=== PATIENT | male | born 1955 | race Two or more races ===

== ENCOUNTER 2022-03-13 11:28 | Emergency (ER) | payer MEDICARE ==
[2022-03-13 11:40] VITALS: TEMP 98
[2022-03-13 11:41] LABS: Glucose,Whole Blood 532 mg/dL (70-110)
--- NOTE | 2022-03-13 12:21 | ED ---
General Adult HPI - General Chief complaint: Altered Mental Status Stated complaint: dizziness, memory issues Time Seen by Provider: 03/13/22 12:11 Source: patient, RN notes reviewed Mode of arrival: ambulatory Limitations: no limitations, altered mental status - History of Present Illness Initial comments: 66-year-old male history diabetes who is a smoker history of COPD who states she's had several days up to 3-4 days of dizziness weakness lightheadedness headache some memory issues. No focal deficits to his upper or lower extremities however headache is [id number] in severity he denies any visual disturbances. No trauma. No other current complaints of modifying factors - Related Data Home Medications Medication Instructions Recorded Confirmed No Known Home Medications 03/13/22 03/13/22 Allergies Allergy/AdvReac Type Severity Reaction Status Date / Time No Known Allergies Allergy Verified 03/13/22 14:11 Review of Systems ROS Statement: Those systems with pertinent positive or pertinent negative responses have been documented in the HPI. ROS Other: All systems not noted in ROS Statement are negative. Past Medical History Past Medical History: Diabetes Mellitus, Hypertension History of Any Multi-Drug Resistant Organisms: None Reported Past Surgical History: No Surgical Hx Reported Past Psychological History: No Psychological Hx Reported Smoking Status: Former smoker Past Alcohol Use History: None Reported Past Drug Use History: None Reported General Exam - General Exam Comments Initial Comments: This is a well-developed well-nourished awake alert oriented 4 male Limitations: no limitations, altered mental status General appearance: alert, in no apparent distress Head exam: Present: atraumatic, normocephalic, normal inspection Eye exam: Present: normal appearance, PERRL, EOMI. Absent: scleral icterus, conjunctival injection, periorbital swelling ENT exam: Present: mucous membranes dry Neck exam: Present: normal inspection, full ROM, other. Absent: tenderness, meningismus, lymphadenopathy Respiratory exam: Present: normal lung sounds bilaterally. Absent: respiratory distress, wheezes, rales, rhonchi, stridor Cardiovascular Exam: Present: normal rhythm, tachycardia, normal heart sounds. Absent: systolic murmur, diastolic murmur, rubs, gallop, clicks GI/Abdominal exam: Present: soft, normal bowel sounds. Absent: distended, tenderness, guarding, rebound, rigid Extremities exam: Present: normal inspection, full ROM, normal capillary refill. Absent: tenderness, pedal edema, joint swelling, calf tenderness Back exam: Present: normal inspection Neurological exam: Present: alert, oriented X3, CN II-XII intact Psychiatric exam: Present: normal affect, normal mood Skin exam: Present: warm, dry, intact, normal color. Absent: rash Course Vital Signs 03/13/22 03/13/22 03/13/22 11:35 11:59 12:30 Temperature 98 F Pulse Rate 110 H 108 H Respiratory 20 28 H 11 L Rate Blood Pressure 174/83 158/90 O2 Sat by Pulse 99 97 Oximetry 03/13/22 13:00 Temperature Pulse Rate 98 Respiratory 16 Rate Blood Pressure 156/84 O2 Sat by Pulse 98 Oximetry - Reevaluation(s) Reevaluation #1: 03/13/22 15:48 Further questions patient he does admit to having some chest pain several days ago. None since additionally no headaches Reevaluation #2: 03/13/22 15:49 I had discussed the case with internal medicine, Dr. Shabazz. The patient did leave AWOL prior to the admission be accomplished. He did not talk to staff before he got up and left the. EKG Findings - EKG Results: EKG: interpreted by ERMD (EKG interpreted by me sinus tachycardia of 104. Interval 184 QRS duration 125 daily since QTC 367/427 possible right ventricular conduction delay evidence of old inferior changes also poor R-wave progression suggesting previous anterolateral septal OH no acute changes seen) Medical Decision Making - Medical Decision Making I did discuss the findings with the patient and with Dr. Shabazz, the patient will be admitted for inpatient evaluation and treatment by cardiology and neuro logy. He did have elevated troponin as well as elevated blood sugar he was acetone negative however. Was pt. sent in by a medical professional or institution? @ No-[by , PA, RAIL TRACK MAINTAINER, urgent care, hospital, or half-way] Did you speak to anyone other than the patient for history? @ No-[EMS, parent, family, police, friend?] Did you review nursing and triage notes? @ Yes and agree-[agree or disagree, why?] Were old charts reviewed? @ Previous inpatient charting -[outside hosp., previous admissions, EMS record, old EKG, old radiological studies, urgent care reports/EKGs, half-way records?] Differential Diagnosis? @ Stroke, acute stroke ruled out at this time, dehydration patient was given IV fluids, hyperglycemia/DKA the patient was given IV fluids and IV insulin. Elevated troponin no definitive EKG changes cardiology was to be consulted- [chest pain, altered mental status abdominal pain women, abdominal pain men, vaginal bleeding, weakness, fever, dyspnea, syncope, headache, dizziness, GI bleed, back pain, seizure] EKG interpreted by me (3pts min.)? @ Yes -[none] X-rays interpreted by me (1pt min.)? @ Yes no acute process -[none] CT interpreted by me (1pt min.)? @ Yes encephalomalacia-[none] U/S interpreted by me (1pt. min.)? @ -[none] What testing was considered but not performed? (CT, X-rays, U/S, labs)? Why? @ [CT, X-rays, U/S, labs? Why?] What meds were considered but not given? Why? @ -[none] Did you discuss the management of the patient with other professionals? @ Dr. Shabazz upon admission-[professionals i.e. Dr, PA, RAIL TRACK MAINTAINER, Lab, RT, Psych Nurse, Scratch Brusher, Yarder Puncher, Teacher, Web Content Coordinator, immigration case worker? Give summary] Did you reconcile home meds? @ -[none] Was smoking cessation discussed for >3mins.? @ -[none] Was critical care preformed (if so, how long)? @ Yes 39 minutes-[none] Were there social determinants of health that impacted care today? How? (Homelessness, low income, unemployed, alcoholism, drug addiction, transportation, low edu. Level, literacy, decrease access to med. care, fpc, rehab)? @ -[Homelessness, low income, unemployed, alcoholism, drug addiction, transportation, low edu. Level, literacy, decrease access to med. care, fpc, rehab?] Was there de-escalation of care discussed even if they declined? (Discuss DNR or withdrawal of care, Hospice)? @ -[Discuss DNR or withdrawal of care, Hospice?] What co-morbidities impacted this encounter? (DM, HTN, Smoking, COPD, CAD, Cancer, CVA, Hep., AIDS, mental health diagnosis, sleep apnea, morbid obesity)? @ Patient was to be admitted controlled diabetes, hyperglycemia, dehydration, elevated troponin-[DM, HTN, Smoking, COPD, CAD, Cancer, CVA, Hep., AIDS, mental health diagnosis, sleep apnea, morbid obesity?] Was patient admitted / discharged? @ The patient left AWOL/AMA without discussion with staff -[hospital course] Undiagnosed new problem with uncertain prognosis? @ -[none] Drug Therapy requiring intensive monitoring for toxicity (Heparin, Nitro, Insulin, Cardizem)? @ -[none] Were any procedures done? @ -[none] Diagnosis/symptom? @ Uncontrolled diabetes, hyperglycemia, dehydration, elevated troponin-[default] Acute, or Chronic, or Acute on Chronic? @ -[default] Uncomplicated (without systemic symptoms) or Complicated (systemic symptoms)? @ -[default] Side effects of treatment? @ Exacerbation -[none] Exacerbation, Progression, or Severe Exacerbation] @ -[no] Poses a threat to life or bodily function? @ -[no] - Lab Data Result diagrams: 03/13/22 12:43 03/13/22 12:43 Lab Results 03/13/22 03/13/22 03/13/22 Range/Units 11:39 12:43 12:43 WBC 11.0 H (3.8-10.6) k/uL RBC 4.98 (4.30-5.90) m/uL Hgb 16.3 (13.0-17.5) gm/dL Hct 47.7 (39.0-53.0) % MCV 95.8 (80.0-100.0) fL MCH 32.7 (25.0-35.0) pg MCHC 34.1 (31.0-37.0) g/dL RDW 12.5 (11.5-15.5) % Plt Count 250 (150-450) k/uL MPV 9.0 Neutrophils % 71 % Lymphocytes % 18 % Monocytes % 6 % Eosinophils % 1 % Basophils % 1 % Neutrophils # 7.9 H (1.3-7.7) k/uL Lymphocytes # 2.0 (1.0-4.8) k/uL Monocytes # 0.7 (0-1.0) k/uL Eosinophils # 0.1 (0-0.7) k/uL Basophils # 0.1 (0-0.2) k/uL Sodium (137-145) mmol/L Potassium (3.5-5.1) mmol/L Chloride (98-107) mmol/L Carbon Dioxide (22-30) mmol/L Anion Gap mmol/L BUN (9-20) mg/dL Creatinine (0.66-1.25) mg/dL Est GFR (CKD-EPI)AfAm (>60 ml/min/1.73 sqM) Est GFR (CKD-EPI)NonAf (>60 ml/min/1.73 sqM) Glucose (74-99) mg/dL POC Glucose (mg/dL) 532 H (70-110) mg/dL POC Glu Tanker Driver ID Fernando Briseno Calcium (8.4-10.2) mg/dL Magnesium (1.6-2.3) mg/dL Total Bilirubin (0.2-1.3) mg/dL AST (17-59) U/L ALT (4-49) U/L Alkaline Phosphatase (38-126) U/L Creatine Kinase (55-170) U/L Troponin I (0.000-0.034) ng/mL Total Protein (6.3-8.2) g/dL Albumin (3.5-5.0) g/dL Urine Color Light Yellow Urine Appearance Clear (Clear) Urine pH 5.0 (5.0-8.0) Ur Specific Roy 1.043 H (1.001-1.035) Urine Protein Negative (Negative) Urine Glucose (UA) 4+ H (Negative) Urine Ketones 1+ H (Negative) Urine Blood Negative (Negative) Urine Nitrite Negative (Negative) Urine Bilirubin Negative (Negative) Urine Urobilinogen <2.0 (<2.0) mg/dL Ur Leukocyte Esterase Negative (Negative) Acetone, Qual (Negative) 03/13/22 03/13/22 Range/Units 12:43 12:43 WBC (3.8-10.6) k/uL RBC (4.30-5.90) m/uL Hgb (13.0-17.5) gm/dL Hct (39.0-53.0) % MCV (80.0-100.0) fL MCH (25.0-35.0) pg MCHC (31.0-37.0) g/dL RDW (11.5-15.5) % Plt Count (150-450) k/uL MPV Neutrophils % % Lymphocytes % % Monocytes % % Eosinophils % % Basophils % % Neutrophils # (1.3-7.7) k/uL Lymphocytes # (1.0-4.8) k/uL Monocytes # (0-1.0) k/uL Eosinophils # (0-0.7) k/uL Basophils # (0-0.2) k/uL Sodium 135 L (137-145) mmol/L Potassium 4.3 (3.5-5.1) mmol/L Chloride 104 (98-107) mmol/L Carbon Dioxide 18 L (22-30) mmol/L Anion Gap 13 mmol/L BUN 15 (9-20) mg/dL Creatinine 0.71 (0.66-1.25) mg/dL Est GFR (CKD-EPI)AfAm >90 (>60 ml/min/1.73 sqM) Est GFR (CKD-EPI)NonAf >90 (>60 ml/min/1.73 sqM) Glucose 511 H* (74-99) mg/dL POC Glucose (mg/dL) (70-110) mg/dL POC Glu Tanker Driver ID Calcium 9.1 (8.4-10.2) mg/dL Magnesium 1.9 (1.6-2.3) mg/dL Total Bilirubin 0.7 (0.2-1.3) mg/dL AST 21 (17-59) U/L ALT 17 (4-49) U/L Alkaline Phosphatase 94 (38-126) U/L Creatine Kinase 41 L (55-170) U/L Troponin I 0.058 H* (0.000-0.034) ng/mL Total Protein 6.9 (6.3-8.2) g/dL Albumin 4.0 (3.5-5.0) g/dL Urine Color Urine Appearance (Clear) Urine pH (5.0-8.0) Ur Specific Roy (1.001-1.035) Urine Protein (Negative) Urine Glucose (UA) (Negative) Urine Ketones (Negative) Urine Blood (Negative) Urine Nitrite (Negative) Urine Bilirubin (Negative) Urine Urobilinogen (<2.0) mg/dL Ur Leukocyte Esterase (Negative) Acetone, Qual Negative (Negative) - Radiology Data Interpreted by me: Imaging interpreted by me showed definitive an increased markings or acute pathology. CT shows evidence of encephalomalacia no definitive acute processes Critical Care Time Critical Care Time: Yes Total Critical Care Time: 39 Critical Care Time: Critical care time includes initial presentation with history physical labs x- rays multiple reevaluation patient responsive therapy fluids IV therapy review of old charting was available discussed with the main physician documentation of the above Disposition Clinical Impression: Uncontrolled diabetes mellitus, Hyperglycemia, Dehydration Disposition: Left Against Medical Advice Condition: Fair Referrals: None,Stated [Primary Care Provider] - 1-2 days Decision Date: 03/13/22 Decision Time: 14:30
--- NOTE | 2022-03-13 12:50 | XR ---
EXAMINATION TYPE: XR chest 2V DATE OF EXAM: 03/13/2022 COMPARISON: NONE HISTORY: Weakness and dizziness, elevated glucose TECHNIQUE: Frontal and lateral views of the chest are obtained. FINDINGS: The cardiomediastinal silhouette is unremarkable. There are calcifications of the aortic k nob. There is no pulmonary vascular congestion. There is a 15 mm opacity in the right mid lung, only appreciated on the frontal projection. Otherwise, lungs are clear. Multilevel degenerative changes of the spine without acute osseous abnormality. IMPRESSION: 1. No acute cardiopulmonary process. 2. 15 mm opacity projecting over the right mid lung. Recommend nonemergent low-dose CT for further e valuation.
--- NOTE | 2022-03-13 12:56 | CT ---
EXAMINATION TYPE: CT brain wo con DATE OF EXAM: 03/13/2022 COMPARISON: None HISTORY: 66-year-old male confusion, altered mental status TECHNIQUE: Examination was done in axial plane without intravenous contrast. Coronal and sagittal r econstructions performed. CT DLP: 1100.4 mGycm Automated exposure control for dose reduction was used. FINDINGS: There is no evidence of acute intracranial hemorrhage, acute ischemic changes, mass, mass-effect, or extra-axial fluid collection. There is no effacement of cerebral sulci or basal subarachnoid cister ns. There is no hydrocephalus. There is no midline shift. Ramirez-white matter distinction is preserv ed. Moderate volume loss along the bilateral cerebral convexities. There is some focal cortical and subco rtical encephalomalacia at the left superior frontoparietal junction, old lacunar infarct left basal ganglia, right caudate head, and additional encephalomalacia in anterolateral left temporal lobe. Mil d periventricular white matter hypodensity. Atherosclerotic calcifications in the bilateral carotid s iphons. Rightward nasal septal deviation. Trace mucosal thickening ethmoid air cells. Mastoid air cells well pneumatized. IMPRESSION: Moderate atrophy along the cerebral convexities. Areas of encephalomalacia superior left frontopariet al junction and left temporal lobe likely relating to prior infarcts. Clinically correlate. Additiona l old lacunar infarcts left basal ganglia and right caudate head. No acute intracranial abnormality s een.
[2022-03-13] MEDS ORDERED: SODIUM CHLORIDE 0.9% 1,000 ML IV STA (13:01)
[2022-03-13 13:02] LABS: Basophils # (A) 0.1 k/uL (0-0.2); Basophils % (A) 1 %; Eosinophils # (A) 0.1 k/uL (0-0.7); Eosinophils % (A) 1 %; HCT 47.7 % (39.0-53.0); HGB 16.3 gm/dL (13.0-17.5); Lymphocytes % (A) 18 %; MCH 32.7 pg (25.0-35.0); MCHC 34.1 g/dL (31.0-37.0); MCV 95.8 fL (80.0-100.0); Monocytes # (A) 0.7 k/uL (0-1.0); Monocytes % (A) 6 %; Neutrophils # (A) 7.9 k/uL (1.3-7.7); Neutrophils % (A) 71 %; Platelet Count 250 k/uL (150-450); RBC 4.98 m/uL (4.30-5.90); RDW 12.5 % (11.5-15.5)
[2022-03-13 13:11] LABS: ALT 17 U/L (4-49); AST 21 U/L (17-59); African American GFR (CKD) >90 (>60 ml/min/1.73 sqM); Alkaline Phosphatase 94 U/L (38-126); Anion Gap 13 mmol/L; Blood Urea Nitrogen 15 mg/dL (9-20); Calcium 9.1 mg/dL (8.4-10.2); Carbon Dioxide 18 mmol/L (22-30); Chloride 104 mmol/L (98-107); Creatine Kinase 41 U/L (55-170); Magnesium 1.9 mg/dL (1.6-2.3); Non-African American GFR(CKD) >90 (>60 ml/min/1.73 sqM); Potassium 4.3 mmol/L (3.5-5.1); Sodium 135 mmol/L (137-145); Total Bilirubin 0.7 mg/dL (0.2-1.3); Total Protein 6.9 g/dL (6.3-8.2)
[2022-03-13 13:21] LABS: Appearance,Urine Clear (Clear); Bilirubin,Urine Negative (Negative); Blood,Urine Negative (Negative); Color,Urine Light Yellow; Glucose,Urine (UA) 4+ (Negative); Ketones,Urine 1+ (Negative); Leukocyte Esterase,Urine Negative (Negative); Nitrite,Urine Negative (Negative); Protein,Urine Negative (Negative); Specific Gravity,Urine 1.043 (1.001-1.035); Urobilinogen,Urine <2.0 mg/dL (<2.0)
[2022-03-13 13:29] LABS: Glucose 511 mg/dL (74-99)
[2022-03-13] MEDS ORDERED: INSULIN REGULAR 100 UNIT/ML VIAL (IV) IV ONE (13:34)
[2022-03-13 14:55] VITALS: BP 156/84; PULSE 98; RESP 16
== END 2022-03-13 15:03 | disposition left against medical advice (07) ==
LOC: EC 11:28
DX: E11.65 Type 2 diabetes mellitus with hyperglycemia (principal); E86.0 Dehydration; G93.89 Other specified disorders of brain; J44.9 Chronic obstructive pulmonary disease, unspecified; I10 Essential (primary) hypertension; Z87.891 Personal history of nicotine dependence
CPT/HCPCS: 36415; 70450; 71046; 80053; 81003; 82009; 82550; 83735; 84484; 85025; 93005; 96360; 99285

== ENCOUNTER 2024-06-10 22:58 | Inpatient (IN) | payer MEDICARE ==
[2024-06-11 00:07] LABS: Basophils # (A) 0.1 k/uL (0-0.2); Basophils % (A) 1 %; Eosinophils # (A) 0.1 k/uL (0-0.7); Eosinophils % (A) 1 %; HCT 47.6 % (39.0-53.0); HGB 15.1 gm/dL (13.0-17.5); Hypochromasia Slight; Lymphocytes # (A) 2.4 k/uL (1.0-4.8); Lymphocytes % (A) 24 %; MCH 29.5 pg (25.0-35.0); MCHC 31.6 g/dL (31.0-37.0); MCV 93.4 fL (80.0-100.0); Mean Platelet Volume 8.4; Monocytes # (A) 0.7 k/uL (0-1.0); Monocytes % (A) 7 %; Neutrophils # (A) 6.7 k/uL (1.3-7.7); Neutrophils % (A) 65 %; Platelet Count 269 k/uL (150-450); RDW 13.6 % (11.5-15.5); WBC 10.2 k/uL (3.8-10.6)
--- NOTE | 2024-06-11 00:09 | ED ---
General Adult HPI - General Chief complaint: Extremity Injury, Lower Stated complaint: leg pain Time Seen by Provider: 06/10/24 23:35 Source: patient, RN notes reviewed, old records reviewed Mode of arrival: ambulatory - History of Present Illness Initial comments: Patient is a 68-year-old male who presents to the emergency department complaining of acute on chronic bilateral lower extremity burning pain. Has a history of poorly controlled diabetes as he is homeless and does not have free access to his insulin. Used to be given shots of insulin as "someone would come give it to me" however this has not been occurring for over a week. Denies any nausea or vomiting or diarrhea. Denies any other acute complaints. States the pain is worse when he is on his legs all day. Describes as burning sensation all over his legs and occasionally his feet go numb. No acute complaints at this time. No leg swelling. No fevers or chills. Presents for further evalua tion at this time. Does not have a PCP to follow-up with. - Related Data Home Medications Medication Instructions Recorded Confirmed No Known Home Medications 03/13/22 03/13/22 Allergies Allergy/AdvReac Type Severity Reaction Status Date / Time No Known Allergies Allergy Verified 03/13/22 14:11 Review of Systems ROS Statement: Those systems with pertinent positive or pertinent negative responses have been documented in the HPI. Review of Systems: CONST: Denies fever EYES: Denies blurry vision ENT: Denies nasal congestion C/V: Denies Chest pain RESP: Denies shortness of breath GI: Denies abdominal pain : Denies dysuria SKIN: Denies rash. MSK: Endorses acute on chronic leg pain NEURO: Denies headache ROS Other: All systems not noted in ROS Statement are negative. Past Medical History Past Medical History: Diabetes Mellitus, Hypertension History of Any Multi-Drug Resistant Organisms: None Reported Past Surgical History: No Surgical Hx Reported Past Psychological History: No Psychological Hx Reported Smoking Status: Former smoker Past Alcohol Use History: None Reported Past Drug Use History: None Reported General Exam - General Exam Comments Initial Comments: General: Appears in no acute distress. HEAD: Normal with no signs of head trauma. EYES: EOMI ENT: Hearing grossly intact, normal oropharynx. RESPIRATORY: Clear breath sounds bilaterally. No wheezes, rales, or rhonchi. C/V: Regular rate and rhythm. S1 and S2 auscultated, no edema, peripheral pulses 2+ and intact throughout ABD: Abd is soft, nontender, nondistended EXT: Normal range of motion, no obvious deformity SKIN: No rashes or lesions observed on exposed skin. NEURO: Alert and oriented x 4. Subjective numbness to the bottoms of his feet. Otherwise neurovascularly intact. Course Vital Signs 06/10/24 06/11/24 23:00 01:56 Temperature 98.1 F Pulse Rate 90 68 Respiratory 18 15 Rate Blood Pressure 186/74 166/83 O2 Sat by Pulse 98 97 Oximetry Medical Decision Making - Medical Decision Making Was pt. sent in by a medical professional or institution (, MARGARET, TWX OPERATOR, urgent care, hospital, or long term...) When possible be specific @ -No Did you speak to anyone other than the patient for history (EMS, parent, family, police, friend...)? What history was obtained from this source @ -No Did you review nursing and triage notes (agree or disagree)? Why? @ -I reviewed and agree with nursing and triage notes Were old charts reviewed (outside hosp., previous admission, EMS record, old EKG, old radiological studies, urgent care reports/EKG's, long term records)? Report findings @ -No old charts were reviewed Differential Diagnosis (chest pain, altered mental status, abdominal pain women, abdominal pain men, vaginal bleeding, weakness, fever, dyspnea, syncope, headache, dizziness, GI bleed, back pain, seizure, CVA, palpatations, mental health, musculoskeletal)? @ -Diabetic neuropathy, DVT, electrolyte abnormality. This list is not all inclusive. EKG interpreted by me (3pts min.). @ -As above X-rays interpreted by me (1pt min.). @ -None done CT interpreted by me (1pt min.). @ -None done U/S interpreted by me (1pt. min.). @ -Ultrasound revealed no evidence of DVT or any obvious acute process of the lower extremities bilaterally. What testing was considered but not performed or refused? (CT, X-rays, U/S, labs)? Why? @ -None What meds were considered but not given or refused? Why? @ -None Did you discuss the management of the patient with other professionals (professionals i.e. , MARGARET, TWX OPERATOR, lab, RT, psych nurse, social science professor, anthropometrist, teacher, systems support officer, caser shoe parts)? Give summary @ -No Was smoking cessation discussed for >3mins.? @ -No Was critical care preformed (if so, how long)? @ -No Were there social determinants of health that impacted care today? How? (Homelessness, low income, unemployed, alcoholism, drug addiction, transportation, low edu. Level, literacy, decrease access to med. care, intermediate, rehab)? @ -Yes, patient is homeless and does not have access to his insulin for his diabetes. Was there de-escalation of care discussed even if they declined (Discuss DNR or withdrawal of care, Hospice)? DNR status @ -No What co-morbidities impacted this encounter? (DM, HTN, Smoking, COPD, CAD, Cancer, CVA, ARF, Chemo, Hep., AIDS, mental health diagnosis, sleep apnea, morbid obesity)? @ -Insulin-dependent diabetes Was patient admitted / discharged? Hospital course, mention meds given and route, prescriptions, significant lab abnormalities, going to OR and other pertinent info. @ -Based on the patient's presentation and physical exam, presents with acute on chronic bilateral lower extremity pain. Seems to be neuropathic pain. We will obtain basic labs, as well as bilateral venous duplex ultrasounds of the legs. Patient is homeless and currently has no access to his insulin. Was receiving it from someone who would come find him and administer it however this has not been occurring. He has no good follow-up and does not follow-up with the PCP. Presents for further evaluation at this time. We may admit the patient for social work evaluation. Patient was in agreement this plan. Ultrasound returned unremarkable. Laboratory studies remarkable for hyperglycemia of 546. Did respond to insulin. I discussed results with the patient. He is homeless and has no access to his medications. Patient will be made an observation admission for product demonstrator, social work to evaluate the patient in the morning and to work out his medication issue. He was in agreement this plan. I spoke with the admitting provider, Dr. Yoder of [facility] who accepted the admission. Undiagnosed new problem with uncertain prognosis? @ -No Drug Therapy requiring intensive monitoring for toxicity (Heparin, Nitro, Insulin, Cardizem)? @ -No Were any procedures done? @ -No Diagnosis/symptom? @ -Hyperglycemia, homeless, medication noncompliance Acute, or Chronic, or Acute on Chronic? @ -Acute Uncomplicated (without systemic symptoms) or Complicated (systemic symptoms)? @ -Complicated Side effects of treatment? @ -None Exacerbation, Progression, or Severe Exacerbation] @ -No Poses a threat to life or bodily function? @ -Potentially, yes if his blood glucose is not controlled. - Lab Data Result diagrams: 06/10/24 23:47 06/10/24 23:47 Lab Results 06/10/24 06/10/24 06/11/24 Range/Units 23:47 23:47 01:44 WBC 10.2 (3.8-10.6) k/uL RBC 5.10 (4.30-5.90) m/uL Hgb 15.1 (13.0-17.5) gm/dL Hct 47.6 (39.0-53.0) % MCV 93.4 (80.0-100.0) fL MCH 29.5 (25.0-35.0) pg MCHC 31.6 (31.0-37.0) g/dL RDW 13.6 (11.5-15.5) % Plt Count 269 (150-450) k/uL MPV 8.4 Neutrophils % 65 % Lymphocytes % 24 % Monocytes % 7 % Eosinophils % 1 % Basophils % 1 % Neutrophils # 6.7 (1.3-7.7) k/uL Lymphocytes # 2.4 (1.0-4.8) k/uL Monocytes # 0.7 (0-1.0) k/uL Eosinophils # 0.1 (0-0.7) k/uL Basophils # 0.1 (0-0.2) k/uL Hypochromasia Slight Sodium 134 L (137-145) mmol/L Potassium 4.4 (3.5-5.1) mmol/L Chloride 99 (98-107) mmol/L Carbon Dioxide 22 (22-30) mmol/L Anion Gap 13 mmol/L BUN 23 H (9-20) mg/dL Creatinine 0.74 (0.66-1.25) mg/dL Est GFR (CKD-EPI)AfAm >90 (>60 ml/min/1.73 sqM) Est GFR (CKD-EPI)NonAf >90 (>60 ml/min/1.73 sqM) Glucose 546 H* (74-99) mg/dL POC Glucose (mg/dL) 361 H (70-110) mg/dL POC Glu Tongue And Groove Machine Operator ID LESTER MCCURDY Calcium 9.9 (8.4-10.2) mg/dL Magnesium 2.1 (1.6-2.3) mg/dL Total Bilirubin 0.6 (0.2-1.3) mg/dL AST 23 (17-59) U/L ALT 23 (4-49) U/L Alkaline Phosphatase 95 (38-126) U/L Total Protein 7.5 (6.3-8.2) g/dL Albumin 4.4 (3.5-5.0) g/dL - EKG Data -: EKG Interpreted by Me EKG Comments: 12-lead Electrocardiogram Interpretation Note EKG was reviewed and interpreted by myself. 12-lead ECG performed at 2347 is interpreted by me as revealing normal sinus rhythm at a rate of 69 beats per minute. Left axis deviation. NM interval is 217 ms, QRS duration is 124 ms, QTc is 434 ms.. There were no ST or T wave abnormalities to suggest myocardial ischemia or injury. R wave progression across the precordium was satisfactory. By my interpretation this EKG is non-diagnostic for acute ischemia. Disposition Clinical Impression: Hyperglycemia, Noncompliance with medication regimen, Homeless Disposition: ADMITTED IP TO THIS HOSP Condition: Stable Time of Disposition: 02:43
[2024-06-11] MEDS: SODIUM CHLORIDE 0.9% 1,000 ML IV ONE (00:10)
[2024-06-11] MEDS: CYCLOBENZAPRINE 5 MG TAB PO STA (00:12)
[2024-06-11] MEDS: GABAPENTIN 100 MG CAP PO STA (00:12)
[2024-06-11] MEDS: KETOROLAC 15 MG/ML 1 ML VIAL IVP STA (00:13)
[2024-06-11 00:32] LABS: ALT 23 U/L (4-49); AST 23 U/L (17-59); African American GFR (CKD) >90 (>60 ml/min/1.73 sqM); Albumin 4.4 g/dL (3.5-5.0); Alkaline Phosphatase 95 U/L (38-126); Anion Gap 13 mmol/L; Blood Urea Nitrogen 23 mg/dL (9-20); Calcium 9.9 mg/dL (8.4-10.2); Carbon Dioxide 22 mmol/L (22-30); Chloride 99 mmol/L (98-107); Magnesium 2.1 mg/dL (1.6-2.3); Non-African American GFR(CKD) >90 (>60 ml/min/1.73 sqM); Potassium 4.4 mmol/L (3.5-5.1); Sodium 134 mmol/L (137-145); Total Bilirubin 0.6 mg/dL (0.2-1.3); Total Protein 7.5 g/dL (6.3-8.2)
[2024-06-11 00:42] LABS: Glucose 546 mg/dL (74-99)
[2024-06-11] MEDS ORDERED: DEXTROSE 50% SYRINGE 50 ML IVP PRN ×2 (00:50)
[2024-06-11] MEDS: INSULIN LISPRO (HumaLOG) 100 UNIT/ML 10 mL VL SQ ONE (01:10)
[2024-06-11 01:45] LABS: Glucose,Whole Blood 361 mg/dL (70-110)
--- NOTE | 2024-06-11 02:27 | US ---
EXAM: US Duplex Bilateral Lower Extremities Veins CLINICAL HISTORY: ITS.REASON US Reason: eval for dvt TECHNIQUE: Real-time duplex ultrasound scan of the bilateral lower extremity veins integrating B-mode two-dimensional vascular structure, Doppler spectral analysis, color flow Doppler imaging and compression. COMPARISON: No relevant prior studies available. FINDINGS: Right deep veins: Unremarkable. No DVT in the right common femoral, femoral, proximal deep femoral or popliteal veins. The veins demonstrate normal color flow, are normally compressible, with normal phasic flow and/or augmentation response. Right superficial veins: Unremarkable. No thrombus in the visualized right great saphenous vein. Left deep veins: Unremarkable. No DVT in the left common femoral, femoral, proximal deep femoral or popliteal veins. The veins demonstrate normal color flow, are normally compressible, with normal phasic flow and/or augmentation response. Left superficial veins: Unremarkable. No thrombus in the visualized left great saphenous vein. Soft tissues: No acute findings. No popliteal cyst. IMPRESSION: Normal bilateral lower extremity duplex venous ultrasound.
[2024-06-11] MEDS ORDERED: NALOXONE 0.4 MG/ML 1 ML VIAL IV PRN (02:43)
[2024-06-11] MEDS ORDERED: ONDANSETRON 4 MG/2 ML VIAL IVP PRN (02:43)
[2024-06-11 03:26] LABS: Glucose,Whole Blood 175 mg/dL (70-110)
[2024-06-11 07:37] LABS: Glucose,Whole Blood 231 mg/dL (70-110)
[2024-06-11] MEDS: ACETAMINOPHEN TAB 325 MG TAB PO PRN (07:58)
[2024-06-11] MEDS: INSULIN LISPRO (HumaLOG) 100 UNIT/ML 10 mL VL SQ SCH (07:58)
[2024-06-11] MEDS: metFORMIN 500 MG TAB PO SCH (10:58)
[2024-06-11] MEDS ORDERED: IBUPROFEN 400 MG TAB PO PRN (12:00)
[2024-06-11 12:14] LABS: Glucose,Whole Blood 287 mg/dL (70-110)
[2024-06-11] MEDS: IBUPROFEN 400 MG TAB PO STA (12:38)
--- NOTE | 2024-06-11 14:22 | P.HPIM ---
History of Present Illness This is a pleasant 68 years old male with past medical history of diabetes mellitus, patient states that he takes 1 injection for diabetes a day and he does not take other medication. He lives in a farm that belongs to his parents by himself after his left him about 8 to 10 years ago, his kids are living somewhere else. He says because of his leg weakness he decided to come to the emergency room. Patient states that his leg weakness was getting slightly worse and worse over several months and years, and told to the degree that he could not move around so he called 911 and came to emergency room. However his legs look stronger now and he told me he could manage himself to walk slowly to the restroom. Also on exam his legs does not look weak and he looks symmetrical he denies tingling or numbness in both upper and lower extremities, no headache or dizziness, no blurred vision or slurred speech. No chest pain or dyspnea no abdominal pain but he complains from right upper quadrant deep discomfort for 2 months. No diarrhea or vomiting. No urinary complaints On exam for his lower extremity weakness he experienced some tenderness especially in the right calf He denies smoking alcohol or illicit drugs Vitals are stable held febrile Labs showing unremarkable CBC, BMP, LFTs, troponin. Glucose was elevated at 546 on admission, improved to 200 Ultrasound of the leg is negative for DVT EKG showing sinus rhythm at 69 with PVCs and anterior fascicular block and LVH. He does not follow-up with PCP for more than 6 months, he cannot remember where he got his prescription for his diabetes medication Review of Systems Review of systems CONSTITUTIONAL: No fever, no malaise, no fatigue. HEENT: No recent visual problems or hearing problems. Denied any sore throat. CARDIOVASCULAR: No orthopnea, PND, no palpitations, no syncope. PULMONARY: No shortness of breath, no cough, no hemoptysis. GASTROINTESTINAL: No diarrhea, no nausea, no vomiting, no abdominal pain. Normoactive bowel sounds. NEUROLOGICAL: No headaches, no weakness, no numbness. HEMATOLOGICAL: Denies any bleeding or petechiae. GENITOURINARY: Denies any burning micturition, frequency, or urgency. MUSCULOSKELETAL/RHEUMATOLOGICAL: Denies any joint pain, swelling, or any muscle pain. ENDOCRINE: Denies any polyuria or polydipsia. Past Medical History Past Medical History: Diabetes Mellitus, Hypertension History of Any Multi-Drug Resistant Organisms: None Reported Past Surgical History: No Surgical Hx Reported Past Anesthesia/Blood Transfusion Reactions: No Reported Reaction Past Psychological History: No Psychological Hx Reported Smoking Status: Former smoker Past Alcohol Use History: None Reported Past Drug Use History: None Reported Medications and Allergies Home Medications Medication Instructions Recorded Confirmed Type No Known Home Medications 03/13/22 06/11/24 History Allergies Allergy/AdvReac Type Severity Reaction Status Date / Time No Known Allergies Allergy Verified 06/11/24 12:10 Physical Exam Vitals: Vital Signs Temp Pulse Pulse Resp BP BP Pulse Ox 06/11/24 11:52 98.4 F 63 16 132/65 95 06/11/24 07:42 97.3 F L 69 16 148/69 94 L 06/11/24 03:33 97.7 F 72 16 155/90 98 06/11/24 01:56 68 15 166/83 97 06/10/24 23:00 98.1 F 90 18 186/74 98 Intake and Output 06/10/24 06/11/24 06/11/24 22:59 06:59 14:59 Intake Total 590 240 Balance 590 240 Intake: Oral 590 240 Other: Voiding Method Toilet # Voids 2 Weight 83 kg GENERAL: The patient is alert and oriented x3, not in any acute distress. Well developed, well nourished. HEENT: Pupils are round and equally reacting to light. EOMI. No scleral icterus. No conjunctival pallor. Normocephalic, atraumatic. No pharyngeal erythema. No thyromegaly. CARDIOVASCULAR: S1 and S2 present. No murmurs, rubs, or gallops. PULMONARY: Chest is clear to auscultation, no wheezing , no crackles. ABDOMEN: Soft, nontender, nondistended, normoactive bowel sounds. No palpable organomegaly. MUSCULOSKELETAL: No joint swelling or deformity. -EXTREMITIES: No cyanosis, clubbing, or pedal edema. Mild tenderness on the right calf with movement NEUROLOGICAL: Gross neurological examination did not reveal any focal deficits. SKIN: No rashes. no petechiae. Results CBC & Chem 7: 06/10/24 23:47 06/10/24 23:47 Labs: Abnormal Lab Results - Last 24 Hours (Table) 06/10/24 06/11/24 06/11/24 Range/Units 23:47 01:44 03:24 Sodium 134 L (137-145) mmol/L BUN 23 H (9-20) mg/dL Glucose 546 H* (74-99) mg/dL POC Glucose (mg/dL) 361 H 175 H (70-110) mg/dL 06/11/24 06/11/24 Range/Units 07:36 12:13 Sodium (137-145) mmol/L BUN (9-20) mg/dL Glucose (74-99) mg/dL POC Glucose (mg/dL) 231 H 287 H (70-110) mg/dL Thrombosis Risk Factor Assmnt - Choose All That Apply Any of the Below Risk Factors Present?: Yes Each Factor Represents 1 point: Obesity (BMI >25) Other Risk Factors: Yes Each Risk Factor Represents 2 Points: Age 61-74 years Other congenital or acquired thrombophilia - If yes, enter type in comment: No Thrombosis Risk Factor Assessment Total Risk Factor Score: 3 Thrombosis Risk Factor Assessment Level: Moderate Risk Assessment and Plan Assessment: Generalized weakness and inability to walk exacerbated by hyperglycemia Diabetes mellitus with hyperglycemia Right upper quadrant pain Right calf tenderness most likely musculoskeletal, mild, ultrasound is negative for DVT Might need help with taking care of himself and social evaluation Plan: Started metformin Encourage eating and drinking Check ultrasound of the right upper quadrant of the abdomen Ultrasound of the legs were negative PT/OT dairy feed worker consult Prognosis is guarded
[2024-06-11] MEDS: DAPAGLIFLOZIN PROPANEDIOL 10 MG TABLET PO SCH (16:21)
[2024-06-11 17:07] LABS: Glucose,Whole Blood 316 mg/dL (70-110)
[2024-06-11] MEDS: HEPARIN SODIUM,PORCINE 5,000 UNIT/ML 1 ML VIAL SQ SCH (20:11)
[2024-06-11] MEDS: FAMOTIDINE 20 MG/2 ML VIAL IV SCH (20:13)
[2024-06-11 20:15] LABS: Glucose,Whole Blood 588 mg/dL (70-110)
[2024-06-11] MEDS: INSULIN GLARGINE (LANTUS) 100 UNIT/ML SYR SQ SCH (21:22)
[2024-06-11] MEDS: INSULIN REGULAR 100 UNIT/ML VIAL (IV) IV ONE (21:23)
[2024-06-11 23:03] LABS: Glucose,Whole Blood 75 mg/dL (70-110)
[2024-06-12 02:27] LABS: Glucose,Whole Blood 209 mg/dL (70-110)
[2024-06-12 07:05] LABS: Glucose,Whole Blood 155 mg/dL (70-110)
--- NOTE | 2024-06-12 07:39 | US ---
EXAMINATION TYPE: US gallbladder DATE OF EXAM: 06/12/2024 COMPARISON: NONE CLINICAL INDICATION: Male, 68 years old with history of ruq pain; RUQ pain TECHNIQUE: Grayscale and color Doppler imaging of the right upper quadrant was performed. FINDINGS: EXAM MEASUREMENTS: Liver Length: 17.5 cm Gallbladder Wall: .2 cm CBD: .3 cm Right Kidney: 10.3 x 5.6 x 4.6 cm GARMENT PARTS CUTTER MACHINE NOTES: Pancreas: Obscured by bowel gas Liver: Increased attenuation Gallbladder: No stones seen Evidence for sonographic Vela's sign: No CBD: wnl Right Kidney: No hydronephrosis or masses seen Suboptimal evaluation of entire pancreas. Visualized portions within normal limits. Visualized liver is heterogeneously hyperechoic. Evaluation for focal masses suboptimal due to the heterogeneity. No a scites is seen. IMPRESSION: No gallstones or ultrasound evidence for acute cholecystitis. [facility], , 06/12/2024 7:37 AM
[2024-06-12 10:16] LABS: Eosinophils % (A) 2.9 %; HCT 44.8 % (39.6-50.0); Lymphocytes # (A) 4.13 X 10*3/uL (0.90-5.00); MCH 29.3 pg (27.0-32.0); MCHC 31.3 g/dL (32.0-37.0); MCV 93.7 FL (80.0-97.0); Mean Platelet Volume 11.5 FL (9.5-12.2); Monocytes # (A) 0.85 X 10*3/uL (0.20-1.00); Monocytes % (A) 8.2 %; NRBC Per 100 WBC 0 X 10*3/uL (0.00-0.01); Neutrophils # (A) 4.91 X 10*3/uL (1.80-7.70); Neutrophils % (A) 47.6 %; Platelet Count 268 X 10*3/uL (140-440); RBC 4.78 X 10*6/uL (4.40-5.60); RDW 14.1 % (11.5-14.5); WBC 10.32 X 10*3/uL (4.50-10.00)
[2024-06-12 10:50] LABS: ALT 20 U/L (10-49); AST 16 U/L (14-35); Albumin 3.7 g/dL (3.8-4.9); Albumin/Globulin Ratio 1.48 Ratio (1.60-3.17); Alkaline Phosphatase 83 U/L (41-126); BUN/Creat Ratio 18.22 Ratio (12.00-20.00); Blood Urea Nitrogen 16.4 mg/dL (9.0-27.0); Calcium 9.2 mg/dL (8.7-10.3); Carbon Dioxide 24.8 mmol/L (21.6-31.8); Chloride 104 mmol/L (96-109); Globulin 2.5 g/dL (1.6-3.3); Glucose 174 mg/dL (70-110); Potassium 4.1 mmol/L (3.5-5.5); Sodium 139 mmol/L (135-145); Total Bilirubin 0.3 mg/dL (0.3-1.2); Total Protein 6.2 g/dL (6.2-8.2)
[2024-06-12 12:18] LABS: Glucose,Whole Blood 180 mg/dL (70-110)
[2024-06-12] MEDS: LOSARTAN 25 MG TAB PO SCH (13:59)
[2024-06-12 17:11] LABS: Glucose,Whole Blood 194 mg/dL (70-110)
[2024-06-12] MEDS: metFORMIN 850 MG TAB PO SCH (17:12)
[2024-06-12 20:32] LABS: Glucose,Whole Blood 224 mg/dL (70-110)
[2024-06-13 01:27] LABS: Glucose,Whole Blood 256 mg/dL (70-110)
--- NOTE | 2024-06-13 04:47 | P.PN ---
Subjective Date of service for this note is 06/12/2024 This is a pleasant 68 years old male with past medical history of diabetes ana maria itus, patient states that he takes 1 injection for diabetes a day and he does not take other medication. He lives in a farm that belongs to his parents by himself after his left him about 8 to 10 years ago, his kids are living somewhere else. He says because of his leg weakness he decided to come to the emergency room. Patient states that his leg weakness was getting slightly worse and worse over several months and years, and told to the degree that he could not move around so he called 911 and came to emergency room. However his legs look stronger now and he told me he could manage himself to walk slowly to the restroom. Also on exam his legs does not look weak and he looks symmetrical he denies tingling or numbness in both upper and lower extremities, no headache or dizziness, no blurred vision or slurred speech. No chest pain or dyspnea no abdominal pain but he complains from right upper quadrant deep discomfort for 2 months. No diarrhea or vomiting. No urinary complaints On exam for his lower extremity weakness he experienced some tenderness especially in the right calf He denies smoking alcohol or illicit drugs Vitals are stable held febrile Labs showing unremarkable CBC, BMP, LFTs, troponin. Glucose was elevated at 546 on admission, improved to 200 Ultrasound of the leg is negative for DVT EKG showing sinus rhythm at 69 with PVCs and anterior fascicular block and LVH. He does not follow-up with PCP for more than 6 months, he cannot remember where he got his prescription for his diabetes medication 06/12 Patient looks comfortable He still complains from mild right upper quadrant pain, gallbladder ultrasound was negative for acute process Complains of bilateral calf pain mainly on the right side, ultrasound of the leg was negative for DVT. His pain is mild. Patient states he is able to ambulate, PT/OT is requested His glucose still uncontrolled, will increase his metformin to 850 3 times daily and added Farxiga. Add losartan 25 mg and Norvasc for uncontrolled hypertension bottom worker on the case to help with placement Objective - Vital Signs Vital signs: Vital Signs Temp 97.8 F 06/13/24 01:58 Pulse 87 06/13/24 01:58 Resp 12 06/13/24 01:58 BP 149/74 06/13/24 01:58 Pulse Ox 96 06/13/24 01:58 FiO2 Intake & Output 06/12/24 06/12/24 06/13/24 06:59 18:59 06:59 Intake Total 0 1080 Balance 0 1080 Intake: Oral 0 1080 Other: Voiding Method Toilet Toilet # Voids 2 3 - Exam GENERAL: The patient is alert and oriented x3, not in any acute distress. Well developed, well nourished. HEENT: Pupils are round and equally reacting to light. EOMI. No scleral icterus. No conjunctival pallor. Normocephalic, atraumatic. No pharyngeal erythema. No thyromegaly. CARDIOVASCULAR: S1 and S2 present. No murmurs, rubs, or gallops. PULMONARY: Chest is clear to auscultation, no wheezing , no crackles. ABDOMEN: Soft, nontender, nondistended, normoactive bowel sounds. No palpable organomegaly. MUSCULOSKELETAL: No joint swelling or deformity. EXTREMITIES: No cyanosis, clubbing, or pedal edema. NEUROLOGICAL: Gross neurological examination did not reveal any focal deficits. SKIN: No rashes. no petechiae. - Labs CBC & Chem 7: 06/12/24 04:30 06/12/24 04:30 Labs: Abnormal Lab Results - Last 24 Hours (Table) 06/12/24 06/12/24 06/12/24 Range/Units 04:30 04:30 04:30 WBC 10.32 H (4.50-10.00) X 10*3/uL MCHC 31.3 L (32.0-37.0) g/dL Glucose 174 H (70-110) mg/dL POC Glucose (mg/dL) (70-110) mg/dL Hemoglobin A1c 9.9 H (<=6.0) % Albumin 3.7 L (3.8-4.9) g/dL Albumin/Globulin Ratio 1.48 L (1.60-3.17) Ratio 06/12/24 06/12/24 06/12/24 Range/Units 07:02 12:16 17:09 WBC (4.50-10.00) X 10*3/uL MCHC (32.0-37.0) g/dL Glucose (70-110) mg/dL POC Glucose (mg/dL) 155 H 180 H 194 H (70-110) mg/dL Hemoglobin A1c (<=6.0) % Albumin (3.8-4.9) g/dL Albumin/Globulin Ratio (1.60-3.17) Ratio 06/12/24 06/13/24 Range/Units 20:31 01:23 WBC (4.50-10.00) X 10*3/uL MCHC (32.0-37.0) g/dL Glucose (70-110) mg/dL POC Glucose (mg/dL) 224 H 256 H (70-110) mg/dL Hemoglobin A1c (<=6.0) % Albumin (3.8-4.9) g/dL Albumin/Globulin Ratio (1.60-3.17) Ratio Assessment and Plan Assessment: Generalized weakness and inability to walk exacerbated by hyperglycemia and dehydration Diabetes mellitus with hyperglycemia Hypertension, uncontrolled on admission Right upper quadrant pain Right calf tenderness most likely musculoskeletal, mild, ultrasound is negative for DVT Might need help with taking care of himself and social evaluation Plan: Continue with metformin 850 mg and Farxiga and insulin sliding scale Add losartan and Norvasc Encourage eating and drinking Ultrasound of the hepatobiliary system and of the legs reviewed and basically were negative PT/OT: Recommended home bottom worker consult Prognosis is guarded
[2024-06-13 07:25] LABS: Glucose,Whole Blood 222 mg/dL (70-110)
[2024-06-13] MEDS: amLODIPine 5 MG TAB PO SCH (10:18)
[2024-06-13 12:17] LABS: Glucose,Whole Blood 360 mg/dL (70-110)
[2024-06-13 16:17] VITALS: BMI 29.5
[2024-06-13 17:20] LABS: Glucose,Whole Blood 195 mg/dL (70-110)
[2024-06-13 20:37] LABS: Glucose,Whole Blood 271 mg/dL (70-110)
[2024-06-13] MEDS: INSULIN GLARGINE (LANTUS) 100 UNIT/ML SYR SQ SCH (21:03)
--- NOTE | 2024-06-14 05:41 | P.PN ---
Subjective Progress Note Date: 06/13/24 This is a pleasant 68 years old male with past medical history of diabetes mellitus, patient states that he takes 1 injection for diabetes a day and he does not take other medication. He lives in a farm that belongs to his parents by himself after his left him about 8 to 10 years ago, his kids are living somewhere else. He says because of his leg weakness he decided to come to the emergency room. Patient states that his leg weakness was getting slightly worse and worse over several months and years, and told to the degree that he could not move around so he called 911 and came to emergency room. However his legs look stronger now and he told me he could manage himself to walk slowly to the restroom. Also on exam his legs does not look weak and he looks symmetrical he denies tingling or numbness in both upper and lower extremities, no headache or dizziness, no blurred vision or slurred speech. No chest pain or dyspnea no abdominal pain but he complains from right upper quadrant deep discomfort for 2 months. No diarrhea or vomiting. No urinary complaints On exam for his lower extremity weakness he experienced some tenderness especially in the right calf He denies smoking alcohol or illicit drugs Vitals are stable held febrile Labs showing unremarkable CBC, BMP, LFTs, troponin. Glucose was elevated at 546 on admission, improved to 200 Ultrasound of the leg is negative for DVT EKG showing sinus rhythm at 69 with PVCs and anterior fascicular block and LVH. He does not follow-up with PCP for more than 6 months, he cannot remember where he got his prescription for his diabetes medication 06/12 Patient looks comfortable He still complains from mild right upper quadrant pain, gallbladder ultrasound was negative for acute process Complains of bilateral calf pain mainly on the right side, ultrasound of the leg was negative for DVT. His pain is mild. Patient states he is able to ambulate, PT/OT is requested His glucose still uncontrolled, will increase his metformin to 850 3 times daily and added Farxiga. Add losartan 25 mg and Norvasc for uncontrolled hypertension signal worker helper on the case to help with placement 06/13/2024 Patient is seen in follow-up today denies any acute overnight issues although continues to have some mildly elevated and uncontrolled blood sugars. PT/OT therapy evaluated and would not qualify for ECF as he is mostly independent recommending home with home care. Social work is following working on possible placement as patient does not have a primary care provider and is extremely noncompliant with medications and unsure of where he has been staying. He reports he stays at a farm that belongs to his parents. Patient is a poor hist orian and apparently other information has been provided to case management/social work by family. Will discuss further with social work regarding the case and may likely need a guardian as patient is not making sound decisions for himself regarding his health and wellbeing. Will consult psych for evaluation as well. Review of systems: Constitutional: No reports of fatigue, fever, or chills Cardiovascular: No reports of chest pain or palpitations Respiratory: No reports of shortness of breath or cough GI: No reports of nausea, vomiting, or diarrhea : No reports of dysuria or retention Neurovascular: No reports of weakness or numbness All medications have been reviewed Physical exam: Gen: This is a 68-year-old male who is awake, alert and oriented x 2, well- developed, appears older than stated age, obese, unkempt HEENT: Head is atraumatic, normocephalic. Pupils equal, round. Sclerae is anicteric. NECK: Supple. No JVD. No lymphadenopathy. No thyromegaly. LUNGS: Diminished breath sounds bilaterally otherwise clear to auscultation. No wheezes or rhonchi. No intercostal retractions. HEART: S1, S2 are muffled ABDOMEN: Soft. Obese. Bowel sounds are present. No masses. No tenderness. EXTREMITIES: No pedal edema. No calf tenderness. NEUROLOGICAL: Patient is awake, alert and oriented x2. Cranial nerves 2 through 12 are grossly intact. Assessment: Generalized weakness and inability to walk exacerbated by hyperglycemia and dehydration Diabetes mellitus, type II, uncontrolled with hyperglycemia Hypertension, uncontrolled on admission and noncompliance with medication Right upper quadrant pain, improved Right calf tenderness most likely musculoskeletal, mild, ultrasound is negative for DVT Noncompliance with medications and follow-up GI prophylaxis DVT prophylaxis Full code Plan: Patient's blood sugars remain elevated and will need insulin adjustments along with medication education regarding diabetes management. Will consult psych for evaluation as patient is noncompliant and not making sound decisions and also has significant past medical history of mental illness and is an extremely poor historian Continue monitoring Accu-Cheks before meals and at bedtime and will adjust insulins for tighter glycemic control. Encouraged small frequent meals and diabetic diet Encouraged increase activity as tolerated. Patient was evaluated by PT/OT therapy and did relatively well and would not qualify for ECF Social work/case management consulted working on social issues including discharge planning and the need for possible guardianship. Due to multiple complex medical issues, overall prognosis is guarded The impression and plan of care has been dictated by Adelia Sweet, Nurse Practitioner as directed. Dr. Rei MD I have performed a history and examination and MDM of this patient, discussed the same with the dictator, and agree with the dictator's assessment and plan as written ,documented as a scribe. Based on total visit time, I have performed more than 50% of the visit. Objective - Vital Signs Vital signs: Vital Signs Temp 97.6 F 06/13/24 13:13 Pulse 71 06/13/24 13:13 Resp 17 06/13/24 13:13 BP 178/90 06/13/24 13:13 Pulse Ox 94 L 06/13/24 13:13 FiO2 Intake & Output 06/12/24 06/13/24 06/13/24 18:59 06:59 18:59 Intake Total 1080 1080 900 Balance 1080 1080 900 Intake: Oral 1080 1080 900 Other: Voiding Method Toilet Toilet # Voids 3 2 - Labs CBC & Chem 7: 06/12/24 04:30 06/12/24 04:30 Labs: Abnormal Lab Results - Last 24 Hours (Table) 06/12/24 06/12/24 06/13/24 Range/Units 17:09 20:31 01:23 POC Glucose (mg/dL) 194 H 224 H 256 H (70-110) mg/dL 06/13/24 06/13/24 Range/Units 07:23 12:15 POC Glucose (mg/dL) 222 H 360 H (70-110) mg/dL
[2024-06-14 07:09] LABS: Glucose,Whole Blood 132 mg/dL (70-110)
[2024-06-14] MEDS: INSULIN GLARGINE (LANTUS) 100 UNIT/ML SYR SQ SCH (08:28)
[2024-06-14 12:11] LABS: Glucose,Whole Blood 205 mg/dL (70-110)
--- NOTE | 2024-06-14 13:57 | P.CN ---
Psychiatric Consult - . Consult date: 06/14/24 Consult:: 06/14/24 13:52 IDENTIFYING DATA: This patient is a 68-year-old male, homeless REASON FOR REFERRAL: Psychiatry was consulted for dementia, previous sex offender, multiple issues, AMS HISTORY OF PRESENT ILLNESS: The patient presented to the hospital with acute on chronic bilateral lower extremity pain. Patient has diabetes and is on insulin. He reportedly has been noncompliant with his medications. Recent CT head from 02/2022 revealed moderate atrophy along cerebral convexities. 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 Patient seen and evaluated in his room however was a poor historian. He was A&Ox2 to self and location was unable to recall why he brought himself to the hospital or the time. Patient denied any past psych history but did recall leaving [place] and coming to [place]. He was unable to elicit his diagnoses or the names of his medications. He was unable to recall getting a CT head back in February 2022 but does report a l ongstanding history of memory issues. At this time patient denies any suicidal or homicidal ideations, intent or plan. Patient denies any auditory, visual hallucinations and denies any paranoia or delusions. Patients admits to using no substances. PAST PSYCHIATRIC HISTORY: Patient has no past psych history. Patient denies being on any psychiatric medications. Patient denies any previous psychiatric hospitalizations. Patient denies any psychiatric outpatient follow-up. Patient denies any history of suicide attempts in the past. PAST MEDICAL HISTORY: Diabetes, hypertension. ALLERGIES: as per EMR. CHEMICAL DEPENDENCY HISTORY: as per HPI. FAMILY PSYCHIATRIC/SUBSTANCE USE HISTORY: Denies SOCIAL HISTORY: Patient is and has 3 children. He completed the 11th grade in high school however was unable to recall his past employment. He is currently homeless. MENTAL STATUS EXAM: General Appearance: Patient appears to be stated age is alert, pleasant, and cooperative. Patient appears to have fair hygiene and grooming wearing hospital gown with fair eye contact. Behavior: Patient is calmly lying in bed without any agitated behavior. Speech: Patient's speech is fluent and nonpressured. Mood/Affect: Patient reports their mood is "okay", affect is constricted Suicidality/Homicidality: Patient denies having any suicidal or homicidal ideation intent or plan. Perceptions: Patient denies any visual hallucinations and denies any auditory hallucinations Though content/process: There is no evidence of any delusional thought content and thought process is linear. Memory and concentration: AOX2 Judgment and insight: Poor IMPRESSIONS: Major neurocognitive disorder PLAN: -At this time patient DOES NOT meet criteria for inpatient psychiatric admission. -Patient DOES NOT have decision making capacity at this time and is unable to reason through and communicate/appreciate the risks, benefits and alternatives to treatment. -Would recommend the following medication changes/additions: Start Aricept 5 mg at bedtime. fishing manager is working on any emergency guardianship for patient and agree with supervised placement as patient is unable to live independently given his severe cognitive impairment -Communicated plan to patient's nurse -Psychiatry will sign off at this time -Please contact with any questions.
[2024-06-14 17:14] LABS: Glucose,Whole Blood 137 mg/dL (70-110)
[2024-06-14] MEDS: DONEPEZIL 5 MG TAB PO SCH (20:41)
[2024-06-14 20:48] LABS: Glucose,Whole Blood 160 mg/dL (70-110)
--- NOTE | 2024-06-15 05:59 | P.PN ---
Subjective Progress Note Date: 06/14/24 This is a pleasant 68 years old male with past medical history of diabetes mellitus, patient states that he takes 1 injection for diabetes a day and he does not take other medication. He lives in a farm that belongs to his parents by himself after his left him about 8 to 10 years ago, his kids are living somewhere else. He says because of his leg weakness he decided to come to the emergency room. Patient states that his leg weakness was getting slightly worse and worse over several months and years, and told to the degree that he could not move around so he called 911 and came to emergency room. However his legs look stronger now and he told me he could manage himself to walk slowly to the restroom. Also on exam his legs does not look weak and he looks symmetrical he denies tingling or numbness in both upper and lower extremities, no headache or dizziness, no blurred vision or slurred speech. No chest pain or dyspnea no abdominal pain but he complains from right upper quadrant deep discomfort for 2 months. No diarrhea or vomiting. No urinary complaints On exam for his lower extremity weakness he experienced some tenderness especially in the right calf He denies smoking alcohol or illicit drugs Vitals are stable held febrile Labs showing unremarkable CBC, BMP, LFTs, troponin. Glucose was elevated at 546 on admission, improved to 200 Ultrasound of the leg is negative for DVT EKG showing sinus rhythm at 69 with PVCs and anterior fascicular block and LVH. He does not follow-up with PCP for more than 6 months, he cannot remember where he got his prescription for his diabetes medication 06/12 Patient looks comfortable He still complains from mild right upper quadrant pain, gallbladder ultrasound was negative for acute process Complains of bilateral calf pain mainly on the right side, ultrasound of the leg was negative for DVT. His pain is mild. Patient states he is able to ambulate, PT/OT is requested His glucose still uncontrolled, will increase his metformin to 850 3 times daily and added Farxiga. Add losartan 25 mg and Norvasc for uncontrolled hypertension garbage pick up worker on the case to help with placement 06/13/2024 Patient is seen in follow-up today denies any acute overnight issues although continues to have some mildly elevated and uncontrolled blood sugars. PT/OT therapy evaluated and would not qualify for ECF as he is mostly independent recommending home with home care. Social work is following working on possible placement as patient does not have a primary care provider and is extremely noncompliant with medications and unsure of where he has been staying. He reports he stays at a farm that belongs to his parents. Patient is a poor hist orian and apparently other information has been provided to case management/social work by family. Will discuss further with social work regarding the case and may likely need a guardian as patient is not making sound decisions for himself regarding his health and wellbeing. Will consult psych for evaluation as well. 06/14/2024 Patient is seen in follow-up this morning currently walking with PT/OT therapy doing well. Patient does have significant history of dementia and is currently homeless and has been living in shelters and hitchhiking. Apparently per social work one of his family members was contacted and apparently may have charges in [place] for sexual offense. Social work following and psychiatry as patient is unable to make sound decisions for himself will be needing a guardian and hearing has been scheduled for next week 06/21/2024. Patient is currently afebrile with no reports of chest pain or shortness of breath. Blood sugars are better controlled on current regimen and will continue to monitor closely. Repeat labs ordered for a.m. and recommend replace electrolytes per protocol. Review of systems: Constitutional: No reports of fatigue, fever, or chills Cardiovascular: No reports of chest pain or palpitations Respiratory: No reports of shortness of breath or cough GI: No reports of nausea, vomiting, or diarrhea : No reports of dysuria or retention Neurovascular: No reports of weakness or numbness All medications have been reviewed Physical exam: Gen: This is a 68-year-old male who is awake, alert and oriented x 2, well- developed, appears older than stated age, elderly, unkempt HEENT: Head is atraumatic, normocephalic. Pupils equal, round. Sclerae is anicteric. NECK: Supple. No JVD. No lymphadenopathy. No thyromegaly. LUNGS: Diminished breath sounds bilaterally otherwise clear to auscultation. No wheezes or rhonchi. No intercostal retractions. HEART: S1, S2 are muffled ABDOMEN: Soft. Obese. Bowel sounds are present. No masses. No tenderness. EXTREMITIES: No pedal edema. No calf tenderness. NEUROLOGICAL: Patient is awake, alert and oriented x2. Cranial nerves 2 through 12 are grossly intact. Assessment: Generalized weakness and inability to walk exacerbated by hyperglycemia and dehydration Diabetes mellitus, type II, uncontrolled with hyperglycemia Hypertension, uncontrolled on admission and noncompliance with medication Right upper quadrant pain, improved Right calf tenderness most likely musculoskeletal, mild, ultrasound is negative for DVT Noncompliance with medications and follow-up GI prophylaxis DVT prophylaxis Full code Plan: Patient's blood sugars remain elevated although improved on current regimen and will continue to adjust insulins accordingly. Patient evaluated by psych and does not meet inpatient criteria for psychiatric unit and is also deemed unable to take care of himself and make decisions regarding his medical care. Social work following and requested a court hearing for guardianship as patient is homeless and unable to care for himself. Once a guardianship is obtained, will look into ECF or AFC home that can accommodate. Continue monitoring Accu-Cheks before meals and at bedtime and will adjust insulins for tighter glycemic control. Encouraged small frequent meals and diabetic diet Encouraged increase activity as tolerated. Patient was evaluated by PT/OT therapy and did relatively well and would not qualify for ECF Due to multiple complex medical issues, overall prognosis is guarded The impression and plan of care has been dictated by Adelia Sweet, Nurse Practitioner as directed. Dr. eRi MD I have performed a history and examination and MDM of this patient, discussed the same with the dictator, and agree with the dictator's assessment and plan as written ,documented as a scribe. Based on total visit time, I have performed more than 50% of the visit. Objective - Vital Signs Vital signs: Vital Signs Temp 98 F 06/15/24 01:49 Pulse 98 06/15/24 01:49 Resp 16 06/15/24 01:49 BP 101/65 06/15/24 01:49 Pulse Ox 96 06/15/24 01:49 FiO2 Intake & Output 06/14/24 06/14/24 06/15/24 06:59 18:59 06:59 Intake Total 740 240 120 Balance 740 240 120 Intake: Oral 740 240 120 Other: Voiding Method Toilet Toilet # Voids 4 1 3 # Bowel Movements 1 - Labs CBC & Chem 7: 06/12/24 04:30 06/12/24 04:30 Labs: Abnormal Lab Results - Last 24 Hours (Table) 06/14/24 06/14/24 06/14/24 Range/Units 07:07 12:04 17:06 POC Glucose (mg/dL) 132 H 205 H 137 H (70-110) mg/dL 06/14/24 Range/Units 20:28 POC Glucose (mg/dL) 160 H (70-110) mg/dL
[2024-06-15 07:02] LABS: Glucose,Whole Blood 115 mg/dL (70-110)
[2024-06-15 08:31] LABS: BUN/Creat Ratio 22.56 Ratio (12.00-20.00); Blood Urea Nitrogen 20.3 mg/dL (9.0-27.0); Calcium 9.5 mg/dL (8.7-10.3); Carbon Dioxide 22.9 mmol/L (21.6-31.8); Chloride 103 mmol/L (96-109); Glucose 121 mg/dL (70-110); Potassium 4.2 mmol/L (3.5-5.5); Sodium 138 mmol/L (135-145)
[2024-06-15 08:52] LABS: Eosinophils # (A) 0.24 X 10*3/uL (0.04-0.35); Eosinophils % (A) 2.3 %; HCT 48.5 % (39.6-50.0); HGB 15.5 g/dL (13.0-17.0); Lymphocytes # (A) 3.43 X 10*3/uL (0.90-5.00); MCH 29.2 pg (27.0-32.0); MCV 91.5 FL (80.0-97.0); Mean Platelet Volume 11.1 FL (9.5-12.2); Monocytes # (A) 1.03 X 10*3/uL (0.20-1.00); Monocytes % (A) 9.9 %; NRBC Per 100 WBC 0 X 10*3/uL (0.00-0.01); Neutrophils # (A) 5.57 X 10*3/uL (1.80-7.70); Neutrophils % (A) 53.5 %; Platelet Count 272 X 10*3/uL (140-440); RDW 13.9 % (11.5-14.5)
[2024-06-15 12:16] LABS: Glucose,Whole Blood 110 mg/dL (70-110)
[2024-06-15 17:09] LABS: Glucose,Whole Blood 152 mg/dL (70-110)
[2024-06-15 19:57] LABS: Glucose,Whole Blood 195 mg/dL (70-110)
--- NOTE | 2024-06-15 22:59 | P.PN ---
Subjective Progress Note Date: 06/15/24 This is a pleasant 68 years old male with past medical history of diabetes mellitus, patient states that he takes 1 injection for diabetes a day and he does not take other medication. He lives in a farm that belongs to his parents by himself after his left him about 8 to 10 years ago, his kids are living somewhere else. He says because of his leg weakness he decided to come to the emergency room. Patient states that his leg weakness was getting slightly worse and worse over several months and years, and told to the degree that he could not move around so he called 911 and came to emergency room. However his legs look stronger now and he told me he could manage himself to walk slowly to the restroom. Also on exam his legs does not look weak and he looks symmetrical he denies tingling or numbness in both upper and lower extremities, no headache or dizziness, no blurred vision or slurred speech. No chest pain or dyspnea no abdominal pain but he complains from right upper quadrant deep discomfort for 2 months. No diarrhea or vomiting. No urinary complaints On exam for his lower extremity weakness he experienced some tenderness especially in the right calf He denies smoking alcohol or illicit drugs Vitals are stable held febrile Labs showing unremarkable CBC, BMP, LFTs, troponin. Glucose was elevated at 546 on admission, improved to 200 Ultrasound of the leg is negative for DVT EKG showing sinus rhythm at 69 with PVCs and anterior fascicular block and LVH. He does not follow-up with PCP for more than 6 months, he cannot remember where he got his prescription for his diabetes medication 06/12 Patient looks comfortable He still complains from mild right upper quadrant pain, gallbladder ultrasound was negative for acute process Complains of bilateral calf pain mainly on the right side, ultrasound of the leg was negative for DVT. His pain is mild. Patient states he is able to ambulate, PT/OT is requested His glucose still uncontrolled, will increase his metformin to 850 3 times daily and added Farxiga. Add losartan 25 mg and Norvasc for uncontrolled hypertension pan tank worker on the case to help with placement 06/13/2024 Patient is seen in follow-up today denies any acute overnight issues although continues to have some mildly elevated and uncontrolled blood sugars. PT/OT therapy evaluated and would not qualify for ECF as he is mostly independent recommending home with home care. Social work is following working on possible placement as patient does not have a primary care provider and is extremely noncompliant with medications and unsure of where he has been staying. He reports he stays at a farm that belongs to his parents. Patient is a poor hist orian and apparently other information has been provided to case management/social work by family. Will discuss further with social work regarding the case and may likely need a guardian as patient is not making sound decisions for himself regarding his health and wellbeing. Will consult psych for evaluation as well. 06/14/2024 Patient is seen in follow-up this morning currently walking with PT/OT therapy doing well. Patient does have significant history of dementia and is currently homeless and has been living in shelters and hitchhiking. Apparently per social work one of his family members was contacted and apparently may have charges in [place] for sexual offense. Social work following and psychiatry as patient is unable to make sound decisions for himself will be needing a guardian and hearing has been scheduled for next week 06/21/2024. Patient is currently afebrile with no reports of chest pain or shortness of breath. Blood sugars are better controlled on current regimen and will continue to monitor closely. Repeat labs ordered for a.m. and recommend replace electrolytes per protocol. 06/15/2024 Patient is seen in follow-up today with no acute overnight issues noted. Patient has been compliant with care and blood sugars better controlled on current regimen and will continue to monitor closely. Labs reviewed and white count mildly elevated at 10 although afebrile with no reports of chest pain, shortness of breath, or burning with urination. Will follow-up on repeat labs and continue current regimen. Social work is following and guardianship hearing plan for 06/21/2024. Apparently patient must remain hospitalized until guardianship has been obtained. Review of systems: Constitutional: No reports of fatigue, fever, or chills Cardiovascular: No reports of chest pain or palpitations Respiratory: No reports of shortness of breath or cough GI: No reports of nausea, vomiting, or diarrhea : No reports of dysuria or retention Neurovascular: No reports of weakness or numbness All medications have been reviewed Physical exam: Gen: This is a 68-year-old male who is awake, alert and oriented x 2, well- developed, appears older than stated age, elderly, unkempt HEENT: Head is atraumatic, normocephalic. Pupils equal, round. Sclerae is anicteric. NECK: Supple. No JVD. No lymphadenopathy. No thyromegaly. LUNGS: Diminished breath sounds bilaterally otherwise clear to auscultation. No wheezes or rhonchi. No intercostal retractions. HEART: S1, S2 are muffled ABDOMEN: Soft. Obese. Bowel sounds are present. No masses. No tenderness. EXTREMITIES: No pedal edema. No calf tenderness. NEUROLOGICAL: Patient is awake, alert and oriented x2. Cranial nerves 2 through 12 are grossly intact. Assessment: Generalized weakness and inability to walk exacerbated by hyperglycemia and dehydration Diabetes mellitus, type II, uncontrolled with hyperglycemia Hypertension, uncontrolled on admission and noncompliance with medication Right upper quadrant pain, improved Right calf tenderness most likely musculoskeletal, mild, ultrasound is negative for DVT Noncompliance with medications and follow-up GI prophylaxis DVT prophylaxis Full code Plan: Patient's blood sugars are somewhat better controlled and will continue current regimen. Recommend to continue with Accu-Cheks before meals and at bedtime and will adjust insulins if needed. Patient evaluated by psych and does not meet inpatient criteria for psychiatric unit and is also deemed unable to take care of himself and make decisions regarding his medical care. Social work following and requested a court hearing for guardianship as patient is homeless and unable to care for himself. Once a guardianship is obtained, will look into ECF or AFC home that can accommodate. Earliest emergent court hearing is set for 06/21/2024 for guardianship Encouraged increase activity as tolerated. Patient was evaluated by PT/OT therapy and did relatively well and would not qualify for ECF Due to multiple complex medical issues, overall prognosis is guarded The impression and plan of care has been dictated by Adelia Sweet, Nurse Practitioner as directed. Dr. Rei MD I have performed a history and examination and MDM of this patient, discussed the same with the dictator, and agree with the dictator's assessment and plan as written ,documented as a scribe. Based on total visit time, I have performed more than 50% of the visit. Objective - Vital Signs Vital signs: Vital Signs Temp 98.4 F 06/15/24 19:49 Pulse 80 06/15/24 19:49 Resp 16 06/15/24 19:49 BP 153/76 06/15/24 19:49 Pulse Ox 97 06/15/24 19:49 FiO2 Intake & Output 06/15/24 06/15/24 06/16/24 06:59 18:59 06:59 Intake Total 120 2520 Balance 120 2520 Intake: Oral 120 2520 Other: Voiding Method Toilet Toilet # Voids 3 5 # Bowel Movements 1 - Labs CBC & Chem 7: 06/15/24 05:34 06/15/24 05:34 Labs: Abnormal Lab Results - Last 24 Hours (Table) 06/15/24 06/15/24 06/15/24 Range/Units 05:34 05:34 06:55 WBC 10.40 H (4.50-10.00) X 10*3/uL Monocytes # 1.03 H (0.20-1.00) X 10*3/uL Anion Gap 12.10 H (4.00-12.00) mmol/L BUN/Creatinine Ratio 22.56 H (12.00-20.00) Ratio Glucose 121 H (70-110) mg/dL POC Glucose (mg/dL) 115 H (70-110) mg/dL 06/15/24 06/15/24 Range/Units 17:08 19:55 WBC (4.50-10.00) X 10*3/uL Monocytes # (0.20-1.00) X 10*3/uL Anion Gap (4.00-12.00) mmol/L BUN/Creatinine Ratio (12.00-20.00) Ratio Glucose (70-110) mg/dL POC Glucose (mg/dL) 152 H 195 H (70-110) mg/dL
[2024-06-16 07:11] LABS: Glucose,Whole Blood 119 mg/dL (70-110)
[2024-06-16 08:27] LABS: BUN/Creat Ratio 28.38 Ratio (12.00-20.00); Blood Urea Nitrogen 22.7 mg/dL (9.0-27.0); Chloride 104 mmol/L (96-109); Glucose 129 mg/dL (70-110); Potassium 4.2 mmol/L (3.5-5.5); Sodium 139 mmol/L (135-145)
[2024-06-16 08:28] LABS: Calcium 9.4 mg/dL (8.7-10.3)
[2024-06-16 08:41] LABS: Basophils # (A) 0.08 X 10*3/uL (0.00-0.10); Basophils % (A) 0.8 %; Eosinophils # (A) 0.21 X 10*3/uL (0.04-0.35); Eosinophils % (A) 2.2 %; HGB 15.6 g/dL (13.0-17.0); Lymphocytes # (A) 3.45 X 10*3/uL (0.90-5.00); Lymphocytes % (A) 35.6 %; MCH 29.6 pg (27.0-32.0); MCHC 32.5 g/dL (32.0-37.0); MCV 91.1 FL (80.0-97.0); Mean Platelet Volume 11.3 FL (9.5-12.2); Monocytes # (A) 0.85 X 10*3/uL (0.20-1.00); Monocytes % (A) 8.8 %; NRBC Per 100 WBC 0 X 10*3/uL (0.00-0.01); Neutrophils # (A) 5.08 X 10*3/uL (1.80-7.70); Neutrophils % (A) 52.4 %; Platelet Count 267 X 10*3/uL (140-440); RBC 5.27 X 10*6/uL (4.40-5.60); RDW 13.9 % (11.5-14.5); WBC 9.69 X 10*3/uL (4.50-10.00)
[2024-06-16 12:28] LABS: Glucose,Whole Blood 189 mg/dL (70-110)
[2024-06-16 17:08] LABS: Glucose,Whole Blood 170 mg/dL (70-110)
--- NOTE | 2024-06-16 19:06 | P.PN ---
Subjective Progress Note Date: 06/16/24 This is a pleasant 68 years old male with past medical history of diabetes mellitus, patient states that he takes 1 injection for diabetes a day and he does not take other medication. He lives in a farm that belongs to his parents by himself after his left him about 8 to 10 years ago, his kids are living somewhere else. He says because of his leg weakness he decided to come to the emergency room. Patient states that his leg weakness was getting slightly worse and worse over several months and years, and told to the degree that he could not move around so he called 911 and came to emergency room. However his legs look stronger now and he told me he could manage himself to walk slowly to the restroom. Also on exam his legs does not look weak and he looks symmetrical he denies tingling or numbness in both upper and lower extremities, no headache or dizziness, no blurred vision or slurred speech. No chest pain or dyspnea no abdominal pain but he complains from right upper quadrant deep discomfort for 2 months. No diarrhea or vomiting. No urinary complaints On exam for his lower extremity weakness he experienced some tenderness especially in the right calf He denies smoking alcohol or illicit drugs Vitals are stable held febrile Labs showing unremarkable CBC, BMP, LFTs, troponin. Glucose was elevated at 546 on admission, improved to 200 Ultrasound of the leg is negative for DVT EKG showing sinus rhythm at 69 with PVCs and anterior fascicular block and LVH. He does not follow-up with PCP for more than 6 months, he cannot remember where he got his prescription for his diabetes medication 06/12 Patient looks comfortable He still complains from mild right upper quadrant pain, gallbladder ultrasound was negative for acute process Complains of bilateral calf pain mainly on the right side, ultrasound of the leg was negative for DVT. His pain is mild. Patient states he is able to ambulate, PT/OT is requested His glucose still uncontrolled, will increase his metformin to 850 3 times daily and added Farxiga. Add losartan 25 mg and Norvasc for uncontrolled hypertension outside maintenance worker on the case to help with placement 06/13/2024 Patient is seen in follow-up today denies any acute overnight issues although continues to have some mildly elevated and uncontrolled blood sugars. PT/OT therapy evaluated and would not qualify for ECF as he is mostly independent recommending home with home care. Social work is following working on possible placement as patient does not have a primary care provider and is extremely noncompliant with medications and unsure of where he has been staying. He reports he stays at a farm that belongs to his parents. Patient is a poor hist orian and apparently other information has been provided to case management/social work by family. Will discuss further with social work regarding the case and may likely need a guardian as patient is not making sound decisions for himself regarding his health and wellbeing. Will consult psych for evaluation as well. 06/14/2024 Patient is seen in follow-up this morning currently walking with PT/OT therapy doing well. Patient does have significant history of dementia and is currently homeless and has been living in shelters and hitchhiking. Apparently per social work one of his family members was contacted and apparently may have charges in [place] for sexual offense. Social work following and psychiatry as patient is unable to make sound decisions for himself will be needing a guardian and hearing has been scheduled for next week 06/21/2024. Patient is currently afebrile with no reports of chest pain or shortness of breath. Blood sugars are better controlled on current regimen and will continue to monitor closely. Repeat labs ordered for a.m. and recommend replace electrolytes per protocol. 06/15/2024 Patient is seen in follow-up today with no acute overnight issues noted. Patient has been compliant with care and blood sugars better controlled on current regimen and will continue to monitor closely. Labs reviewed and white count mildly elevated at 10 although afebrile with no reports of chest pain, shortness of breath, or burning with urination. Will follow-up on repeat labs and continue current regimen. Social work is following and guardianship hearing plan for 06/21/2024. Apparently patient must remain hospitalized until guardianship has been obtained. 06/16/2024 Patient is seen in follow-up today and blood sugars are controlled. Currently awaiting court hearing for guardianship which is on June 21, 2024. Social work following and once guardianship is obtained we will work on placement. Patient for nursing staff has been inappropriate intermittently. Patient denies chest pain or shortness of breath. Patient reports he is eating and drinking with no reported nausea or vomiting. Review of systems: Constitutional: No reports of fatigue, fever, or chills Cardiovascular: No reports of chest pain or palpitations Respiratory: No reports of shortness of breath or cough GI: No reports of nausea, vomiting, or diarrhea : No reports of dysuria or retention Neurovascular: No reports of weakness or numbness All medications have been reviewed Physical exam: Gen: This is a 68-year-old male who is awake, alert and oriented x 2, well-developed, appears older than stated age, elderly, unkempt HEENT: Head is atraumatic, normocephalic. Pupils equal, round. Sclerae is anicteric. NECK: Supple. No JVD. No lymphadenopathy. No thyromegaly. LUNGS: Diminished breath sounds bilaterally otherwise clear to auscultation. No wheezes or rhonchi. No intercostal retractions. HEART: S1, S2 are muffled ABDOMEN: Soft. Obese. Bowel sounds are present. No masses. No tenderness. EXTREMITIES: No pedal edema. No calf tenderness. NEUROLOGICAL: Patient is awake, alert and oriented x2. Cranial nerves 2 through 12 are grossly intact. Assessment: Generalized weakness and inability to walk exacerbated by hyperglycemia and dehydration, improved, patient is walking independently Diabetes mellitus, type II, uncontrolled with hyperglycemia Hypertension, uncontrolled on admission and noncompliance with medication Right upper quadrant pain, improved Right calf tenderness most likely musculoskeletal, mild, ultrasound is negative for DVT Noncompliance with medications and follow-up GI prophylaxis DVT prophylaxis Full code Plan: Patient's blood sugars are somewhat better controlled and will continue current regimen. Recommend to continue with Accu-Cheks before meals and at bedtime and will adjust insulins if needed. Patient evaluated by psych and does not meet inpatient criteria for psychiatric unit and is also deemed unable to take care of himself and make decisions regarding his medical care. Social work following and requested a court hearing for guardianship as patient is homeless and unable to care for himself. Once a guardianship is obtained, will look into ECF or AFC home that can accommodate. Earliest emergent court hearing is set for 06/21/2024 for guardianship Encouraged increase activity as tolerated. Patient was evaluated by PT/OT therapy and did relatively well and would not qualify for ECF If patient becomes inappropriate or wandering, recommend sitter at bedside. Apparently per nursing documentation patient was inappropriately making gestures to nursing staff. Due to multiple complex medical issues, overall prognosis is guarded The impression and plan of care has been dictated by Adelia Sweet, Nurse Practitioner as directed. Dr. Rei MD I have performed a history and examination and MDM of this patient, discussed the same with the dictator, and agree with the dictator's assessment and plan as written ,documented as a scribe. Based on total visit time, I have performed more than 50% of the visit. Objective - Vital Signs Vital signs: Vital Signs Temp 97.8 F 06/16/24 12:13 Pulse 68 06/16/24 17:05 Resp 17 06/16/24 12:13 BP 139/78 06/16/24 12:13 Pulse Ox 98 06/16/24 12:13 FiO2 Intake & Output 06/16/24 06/16/24 06/17/24 06:59 18:59 06:59 Other: Voiding Method Toilet Toilet # Voids 0 - Labs CBC & Chem 7: 06/16/24 04:53 06/16/24 04:53 Labs: Abnormal Lab Results - Last 24 Hours (Table) 06/15/24 06/16/24 06/16/24 Range/Units 19:55 04:53 07:08 Carbon Dioxide 21.0 L (21.6-31.8) mmol/L Anion Gap 14.00 H (4.00-12.00) mmol/L BUN/Creatinine Ratio 28.38 H (12.00-20.00) Ratio Glucose 129 H (70-110) mg/dL POC Glucose (mg/dL) 195 H 119 H (70-110) mg/dL 06/16/24 06/16/24 Range/Units 12:16 17:05 Carbon Dioxide (21.6-31.8) mmol/L Anion Gap (4.00-12.00) mmol/L BUN/Creatinine Ratio (12.00-20.00) Ratio Glucose (70-110) mg/dL POC Glucose (mg/dL) 189 H 170 H (70-110) mg/dL
[2024-06-16 20:00] LABS: Glucose,Whole Blood 146 mg/dL (70-110)
[2024-06-17 07:16] LABS: Glucose,Whole Blood 140 mg/dL (70-110)
[2024-06-17 12:21] LABS: Glucose,Whole Blood 181 mg/dL (70-110)
[2024-06-17 17:15] LABS: Glucose,Whole Blood 108 mg/dL (70-110)
[2024-06-17 20:19] LABS: Glucose,Whole Blood 184 mg/dL (70-110)
--- NOTE | 2024-06-18 03:05 | PN ---
PROGRESS NOTE DATE OF SERVICE: 06/17/2024 SUBJECTIVE: This is a 68-year-old gentleman, who was admitted with weakness and hyperglycemia, also with multiple medical issues also. The patient is also waiting for the guardianship issues. No chest pain. No palpitation. PHYSICAL EXAMINATION: VITAL SIGNS: Pulse 72, blood pressure 142/77, respirations 16. CHEST: Clear to auscultation. CARDIOVASCULAR: S1 and S2. ABDOMEN: Soft. LABORATORY DATA: Accu-Cheks noted. White count is noted. ASSESSMENT: 1. Generalized weakness with hyperglycemia and dehydration. 2. Diabetes mellitus type 2, uncontrolled with hyperglycemia. 3. Hypertension. 4. Right upper quadrant pain. 5. Right calf tenderness, musculoskeletal. 6. History of noncompliance. 7. Guardianship issues. RECOMMENDATIONS: Recommended to continue with current management, continue with symptomatic treatment. Otherwise, I would recommend repeat labs. Closely follow with social media marketing manager. Guarded prognosis. Further recommendations to follow. MMODL / IJN: [id number] /
[2024-06-18 07:26] LABS: Glucose,Whole Blood 127 mg/dL (70-110)
[2024-06-18 11:09] LABS: Basophils # (A) 0.09 X 10*3/uL (0.00-0.10); Basophils % (A) 0.9 %; Eosinophils # (A) 0.25 X 10*3/uL (0.04-0.35); Eosinophils % (A) 2.5 %; HCT 47.4 % (39.6-50.0); HGB 15.5 g/dL (13.0-17.0); Lymphocytes # (A) 4.12 X 10*3/uL (0.90-5.00); Lymphocytes % (A) 41.6 %; MCH 29.8 pg (27.0-32.0); MCHC 32.7 g/dL (32.0-37.0); Mean Platelet Volume 11.5 FL (9.5-12.2); Monocytes # (A) 0.96 X 10*3/uL (0.20-1.00); Monocytes % (A) 9.7 %; NRBC Per 100 WBC 0 X 10*3/uL (0.00-0.01); Neutrophils # (A) 4.44 X 10*3/uL (1.80-7.70); Neutrophils % (A) 44.9 %; Platelet Count 265 X 10*3/uL (140-440); RBC 5.21 X 10*6/uL (4.40-5.60); RDW 13.8 % (11.5-14.5)
[2024-06-18 11:46] LABS: Blood Urea Nitrogen 19.2 mg/dL (9.0-27.0); Calcium 9.4 mg/dL (8.7-10.3); Carbon Dioxide 23.2 mmol/L (21.6-31.8); Chloride 101 mmol/L (96-109); Glucose 150 mg/dL (70-110); Potassium 4.3 mmol/L (3.5-5.5); Sodium 135 mmol/L (135-145)
[2024-06-18 12:14] LABS: Glucose,Whole Blood 191 mg/dL (70-110)
[2024-06-18 17:09] LABS: Glucose,Whole Blood 155 mg/dL (70-110)
[2024-06-18 20:52] LABS: Glucose,Whole Blood 195 mg/dL (70-110)
[2024-06-18] MEDS: amLODIPine 5 MG TAB PO SCH (21:00)
--- NOTE | 2024-06-18 23:06 | PN ---
PROGRESS NOTE DATE OF SERVICE: 06/18/2024 SUBJECTIVE: This is a 68-year-old gentleman admitted with generalized weakness and hyperglycemia, is being closely monitored at this time. Guardianship is pending. OBJECTIVE: VITAL SIGNS: Pulse 70, blood pressure 174/76. CHEST: Clear. CARDIOVASCULAR: S1, S2. ABDOMEN: Soft. LABORATORY DATA: Reviewed. ASSESSMENT: 1. Generalized weakness with hyperglycemia, and dehydration. 2. Diabetes mellitus, type 2, uncontrolled with hyperglycemia. 3. Hypertension. 4. Right upper quadrant abdominal pain. 5. Right calf tenderness, musculoskeletal. RECOMMENDATIONS: Recommended to continue with current management and continue symptomatic treatment. Otherwise, I would increase the Norvasc to 5 mg b.i.d. and continue to monitor. Further recommendations to follow. MMODL / IJN: [id number] /
[2024-06-19 07:15] LABS: Glucose,Whole Blood 130 mg/dL (70-110)
[2024-06-19 12:24] LABS: Glucose,Whole Blood 170 mg/dL (70-110)
[2024-06-19 17:13] LABS: Glucose,Whole Blood 189 mg/dL (70-110)
[2024-06-19 20:14] LABS: Glucose,Whole Blood 105 mg/dL (70-110)
--- NOTE | 2024-06-20 06:29 | P.PN ---
Subjective Progress Note Date: 06/19/24 This is a pleasant 68 years old male with past medical history of diabetes mellitus, patient states that he takes 1 injection for diabetes a day and he does not take other medication. He lives in a farm that belongs to his parents by himself after his left him about 8 to 10 years ago, his kids are living somewhere else. He says because of his leg weakness he decided to come to the emergency room. Patient states that his leg weakness was getting slightly worse and worse over several months and years, and told to the degree that he could not move around so he called 911 and came to emergency room. However his legs look stronger now and he told me he could manage himself to walk slowly to the restroom. Also on exam his legs does not look weak and he looks symmetrical he denies tingling or numbness in both upper and lower extremities, no headache or dizziness, no blurred vision or slurred speech. No chest pain or dyspnea no abdominal pain but he complains from right upper quadrant deep discomfort for 2 months. No diarrhea or vomiting. No urinary complaints On exam for his lower extremity weakness he experienced some tenderness especially in the right calf He denies smoking alcohol or illicit drugs Vitals are stable held febrile Labs showing unremarkable CBC, BMP, LFTs, troponin. Glucose was elevated at 546 on admission, improved to 200 Ultrasound of the leg is negative for DVT EKG showing sinus rhythm at 69 with PVCs and anterior fascicular block and LVH. He does not follow-up with PCP for more than 6 months, he cannot remember where he got his prescription for his diabetes medication 06/12 Patient looks comfortable He still complains from mild right upper quadrant pain, gallbladder ultrasound was negative for acute process Complains of bilateral calf pain mainly on the right side, ultrasound of the leg was negative for DVT. His pain is mild. Patient states he is able to ambulate, PT/OT is requested His glucose still uncontrolled, will increase his metformin to 850 3 times daily and added Farxiga. Add losartan 25 mg and Norvasc for uncontrolled hypertension auto body worker on the case to help with placement 06/13/2024 Patient is seen in follow-up today denies any acute overnight issues although continues to have some mildly elevated and uncontrolled blood sugars. PT/OT therapy evaluated and would not qualify for ECF as he is mostly independent recommending home with home care. Social work is following working on possible placement as patient does not have a primary care provider and is extremely noncompliant with medications and unsure of where he has been staying. He reports he stays at a farm that belongs to his parents. Patient is a poor hist orian and apparently other information has been provided to case management/social work by family. Will discuss further with social work regarding the case and may likely need a guardian as patient is not making sound decisions for himself regarding his health and wellbeing. Will consult psych for evaluation as well. 06/14/2024 Patient is seen in follow-up this morning currently walking with PT/OT therapy doing well. Patient does have significant history of dementia and is currently homeless and has been living in shelters and hitchhiking. Apparently per social work one of his family members was contacted and apparently may have charges in [place] for sexual offense. Social work following and psychiatry as patient is unable to make sound decisions for himself will be needing a guardian and hearing has been scheduled for next week 06/21/2024. Patient is currently afebrile with no reports of chest pain or shortness of breath. Blood sugars are better controlled on current regimen and will continue to monitor closely. Repeat labs ordered for a.m. and recommend replace electrolytes per protocol. 06/15/2024 Patient is seen in follow-up today with no acute overnight issues noted. Patient has been compliant with care and blood sugars better controlled on current regimen and will continue to monitor closely. Labs reviewed and white count mildly elevated at 10 although afebrile with no reports of chest pain, shortness of breath, or burning with urination. Will follow-up on repeat labs and continue current regimen. Social work is following and guardianship hearing plan for 06/21/2024. Apparently patient must remain hospitalized until guardianship has been obtained. 06/16/2024 Patient is seen in follow-up today and blood sugars are controlled. Currently awaiting court hearing for guardianship which is on June 21, 2024. Social work following and once guardianship is obtained we will work on placement. Patient for nursing staff has been inappropriate intermittently. Patient denies chest pain or shortness of breath. Patient reports he is eating and drinking with no reported nausea or vomiting. 06/19/2024 Patient is seen in follow up today with no acute overnight issues noted. Blood sugars have been well-controlled on current regimen and will continue. Encouraged increase activity as tolerated with frequent walks around the halls. Currently awaiting guardianship court hearing on 06/21/2024. Social work is following and will discuss further regarding discharge planning once patient has guardianship. Review of systems: Constitutional: No reports of fatigue, fever, or chills Cardiovascular: No reports of chest pain or palpitations Respiratory: No reports of shortness of breath or cough GI: No reports of nausea, vomiting, or diarrhea : No reports of dysuria or retention Neurovascular: No reports of weakness or numbness All medications have been reviewed Physical exam: Gen: This is a 68-year-old male who is awake, alert and oriented x 2, well- developed, appears older than stated age, elderly, unkempt HEENT: Head is atraumatic, normocephalic. Pupils equal, round. Sclerae is anicteric. NECK: Supple. No JVD. No lymphadenopathy. No thyromegaly. LUNGS: Diminished breath sounds bilaterally otherwise clear to auscultation. No wheezes or rhonchi. No intercostal retractions. HEART: S1, S2 are muffled ABDOMEN: Soft. Obese. Bowel sounds are present. No masses. No tenderness. EXTREMITIES: No pedal edema. No calf tenderness. NEUROLOGICAL: Patient is awake, alert and oriented x2. Cranial nerves 2 through 12 are grossly intact. Assessment: Generalized weakness and inability to walk exacerbated by hyperglycemia and dehy dration, improved, patient is walking independently Diabetes mellitus, type II, uncontrolled with hyperglycemia, hemoglobin A1c is 9.9 Hypertension, uncontrolled on admission and noncompliance with medication, improved Right upper quadrant pain, improved Right calf tenderness most likely musculoskeletal, mild, ultrasound is negative for DVT Noncompliance with medications and follow-up GI prophylaxis DVT prophylaxis Full code Plan: Patient's blood sugars are somewhat better controlled and will continue current regimen. Recommend to continue with Accu-Cheks before meals and at bedtime and will adjust insulins if needed. Patient evaluated by psych and does not meet inpatient criteria for psychiatric unit and is also deemed unable to take care of himself and make decisions regarding his medical care. Social work following and requested a court hearing for guardianship as patient is homeless and unable to care for himself. Once a guardianship is obtained, will look into ECF or AFC home that can accommodate. Earliest emergent court hearing is set for 06/21/2024 for guardianship Encouraged increase activity as tolerated. Patient was evaluated by PT/OT therapy and did relatively well and would not qualify for ECF If patient becomes inappropriate or wandering, recommend sitter at bedside. Apparently per nursing patient has not been in appropriate Due to multiple complex medical issues, overall prognosis is guarded The impression and plan of care has been dictated by Adelia Sweet, Nurse Practitioner as directed. Dr. Rei MD I have performed a history and examination and MDM of this patient, discussed the same with the dictator, and agree with the dictator's assessment and plan as written ,documented as a scribe. Based on total visit time, I have performed more than 50% of the visit. Objective - Vital Signs Vital signs: Vital Signs Temp 97.7 F 06/19/24 12:24 Pulse 70 06/19/24 12:24 Resp 18 06/19/24 12:24 BP 117/69 06/19/24 12:24 Pulse Ox 98 06/19/24 12:24 FiO2 Intake & Output 06/18/24 06/19/24 06/19/24 18:59 06:59 18:59 Intake Total 1560 950 Balance 1560 950 Intake: Oral 1560 950 Other: Voiding Method Toilet Toilet Toilet # Voids 5 2 # Bowel Movements 1 - Labs CBC & Chem 7: 06/18/24 05:12 06/18/24 05:12 Labs: Abnormal Lab Results - Last 24 Hours (Table) 06/18/24 06/18/24 06/19/24 Range/Units 17:08 20:51 07:14 POC Glucose (mg/dL) 155 H 195 H 130 H (70-110) mg/dL 06/19/24 Range/Units 12:23 POC Glucose (mg/dL) 170 H (70-110) mg/dL
[2024-06-20 07:21] LABS: Glucose,Whole Blood 134 mg/dL (70-110)
[2024-06-20 12:04] LABS: Glucose,Whole Blood 149 mg/dL (70-110)
[2024-06-20 17:29] LABS: Glucose,Whole Blood 225 mg/dL (70-110)
[2024-06-20 20:32] LABS: Glucose,Whole Blood 160 mg/dL (70-110)
[2024-06-21 07:17] LABS: Glucose,Whole Blood 116 mg/dL (70-110)
--- NOTE | 2024-06-21 09:14 | P.PN ---
Subjective Progress Note Date: 06/20/24 This is a pleasant 68 years old male with past medical history of diabetes mellitus, patient states that he takes 1 injection for diabetes a day and he does not take other medication. He lives in a farm that belongs to his parents by himself after his left him about 8 to 10 years ago, his kids are living somewhere else. He says because of his leg weakness he decided to come to the emergency room. Patient states that his leg weakness was getting slightly worse and worse over several months and years, and told to the degree that he could not move around so he called 911 and came to emergency room. However his legs look stronger now and he told me he could manage himself to walk slowly to the restroom. Also on exam his legs does not look weak and he looks symmetrical he denies tingling or numbness in both upper and lower extremities, no headache or dizziness, no blurred vision or slurred speech. No chest pain or dyspnea no abdominal pain but he complains from right upper quadrant deep discomfort for 2 months. No diarrhea or vomiting. No urinary complaints On exam for his lower extremity weakness he experienced some tenderness especially in the right calf He denies smoking alcohol or illicit drugs Vitals are stable held febrile Labs showing unremarkable CBC, BMP, LFTs, troponin. Glucose was elevated at 546 on admission, improved to 200 Ultrasound of the leg is negative for DVT EKG showing sinus rhythm at 69 with PVCs and anterior fascicular block and LVH. He does not follow-up with PCP for more than 6 months, he cannot remember where he got his prescription for his diabetes medication 06/12 Patient looks comfortable He still complains from mild right upper quadrant pain, gallbladder ultrasound was negative for acute process Complains of bilateral calf pain mainly on the right side, ultrasound of the leg was negative for DVT. His pain is mild. Patient states he is able to ambulate, PT/OT is requested His glucose still uncontrolled, will increase his metformin to 850 3 times daily and added Farxiga. Add losartan 25 mg and Norvasc for uncontrolled hypertension out of school hours care worker on the case to help with placement 06/13/2024 Patient is seen in follow-up today denies any acute overnight issues although continues to have some mildly elevated and uncontrolled blood sugars. PT/OT therapy evaluated and would not qualify for ECF as he is mostly independent recommending home with home care. Social work is following working on possible placement as patient does not have a primary care provider and is extremely noncompliant with medications and unsure of where he has been staying. He reports he stays at a farm that belongs to his parents. Patient is a poor hist orian and apparently other information has been provided to case management/social work by family. Will discuss further with social work regarding the case and may likely need a guardian as patient is not making sound decisions for himself regarding his health and wellbeing. Will consult psych for evaluation as well. 06/14/2024 Patient is seen in follow-up this morning currently walking with PT/OT therapy doing well. Patient does have significant history of dementia and is currently homeless and has been living in shelters and hitchhiking. Apparently per social work one of his family members was contacted and apparently may have charges in [place] for sexual offense. Social work following and psychiatry as patient is unable to make sound decisions for himself will be needing a guardian and hearing has been scheduled for next week 06/21/2024. Patient is currently afebrile with no reports of chest pain or shortness of breath. Blood sugars are better controlled on current regimen and will continue to monitor closely. Repeat labs ordered for a.m. and recommend replace electrolytes per protocol. 06/15/2024 Patient is seen in follow-up today with no acute overnight issues noted. Patient has been compliant with care and blood sugars better controlled on current regimen and will continue to monitor closely. Labs reviewed and white count mildly elevated at 10 although afebrile with no reports of chest pain, shortness of breath, or burning with urination. Will follow-up on repeat labs and continue current regimen. Social work is following and guardianship hearing plan for 06/21/2024. Apparently patient must remain hospitalized until guardianship has been obtained. 06/16/2024 Patient is seen in follow-up today and blood sugars are controlled. Currently awaiting court hearing for guardianship which is on June 21, 2024. Social work following and once guardianship is obtained we will work on placement. Patient for nursing staff has been inappropriate intermittently. Patient denies chest pain or shortness of breath. Patient reports he is eating and drinking with no reported nausea or vomiting. 06/19/2024 Patient is seen in follow up today with no acute overnight issues noted. Blood sugars have been well-controlled on current regimen and will continue. Encouraged increase activity as tolerated with frequent walks around the halls. Currently awaiting guardianship court hearing on 06/21/2024. Social work is following and will discuss further regarding discharge planning once patient has guardianship. 06/20/2024 Patient is seen in follow-up this morning continues to be pleasant with no issues noted per nursing staff. Patient's blood sugars are well-controlled and will continue with current regimen. Patient will continue on sliding scale and as needed long-acting and will adjust accordingly. Social work is following and emergent guardianship hearing is tomorrow for 12/02/2024 and will await guardianship and then proceed with possible placement. Patient also to have Medicaid application initiated. Patient is afebrile with no reports of chest pain or shortness of breath. Patient has been up and walking to the bathroom with no difficulties. Will continue to monitor closely. Review of systems: Constitutional: No reports of fatigue, fever, or chills Cardiovascular: No reports of chest pain or palpitations Respiratory: No reports of shortness of breath or cough GI: No reports of nausea, vomiting, or diarrhea : No reports of dysuria or retention Neurovascular: No reports of weakness or numbness All medications have been reviewed Physical exam: Gen: This is a 68-year-old male who is awake, alert and oriented x 2, well- developed, appears older than stated age, elderly, unkempt HEENT: Head is atraumatic, normocephalic. Pupils equal, round. Sclerae is anicteric. NECK: Supple. No JVD. No lymphadenopathy. No thyromegaly. LUNGS: Diminished breath sounds bilaterally otherwise clear to auscultation. No wheezes or rhonchi. No intercostal retractions. HEART: S1, S2 are muffled ABDOMEN: Soft. Obese. Bowel sounds are present. No masses. No tenderness. EXTREMITIES: No pedal edema. No calf tenderness. NEUROLOGICAL: Patient is awake, alert and oriented x2. Cranial nerves 2 through 12 are grossly intact. Assessment: Generalized weakness and inability to walk exacerbated by hyperglycemia and dehydration, improved, patient is walking independently Diabetes mellitus, type II, uncontrolled with hyperglycemia, hemoglobin A1c is 9.9 Hypertension, uncontrolled on admission and noncompliance with medication, imp roved Right upper quadrant pain, improved Right calf tenderness most likely musculoskeletal, mild, ultrasound is negative for DVT Noncompliance with medications and follow-up GI prophylaxis DVT prophylaxis Full code Plan: Patient's blood sugars are somewhat better controlled and will continue current regimen. Recommend to continue with Accu-Cheks before meals and at bedtime and will adjust insulins if needed. Patient evaluated by psych and does not meet inpatient criteria for psychiatric unit and is also deemed unable to take care of himself and make decisions regarding his medical care. Social work following and requested a court hearing for guardianship as patient is homeless and unable to care for himself. Once a guardianship is obtained, will look into ECF or AFC home that can accommodate. Earliest emergent court hearing is set for 06/21/2024 for guardianship Encouraged increase activity as tolerated. Patient was evaluated by PT/OT therapy and did relatively well and would not qualify for ECF Court hearing is scheduled for 06/21/2024 at 2:30 PM for guardianship and social work is following as patient will then require Medicaid application and further direction on AFC home or other form of residence. Will await to talk with social work post court hearing If patient becomes inappropriate or wandering, recommend sitter at bedside. Apparently per nursing patient has not been in appropriate Due to multiple complex medical issues, overall prognosis is guarded The impression and plan of care has been dictated by Adelia Sweet, Nurse Practitioner as directed. Dr. Rei MD I have performed a history and examination and MDM of this patient, discussed the same with the dictator, and agree with the dictator's assessment and plan as written ,documented as a scribe. Based on total visit time, I have performed more than 50% of the visit. Objective - Vital Signs Vital signs: Vital Signs Temp 97.4 F L 06/21/24 07:45 Pulse 68 06/21/24 07:45 Resp 16 06/21/24 07:45 BP 149/73 06/21/24 07:45 Pulse Ox 96 06/21/24 07:45 FiO2 Intake & Output 06/20/24 06/21/24 06/21/24 18:59 06:59 18:59 Other: Voiding Method Toilet Toilet # Voids 4 1 - Labs CBC & Chem 7: 06/18/24 05:12 06/18/24 05:12 Labs: Abnormal Lab Results - Last 24 Hours (Table) 06/20/24 06/20/24 06/20/24 Range/Units 12:02 17:26 20:29 POC Glucose (mg/dL) 149 H 225 H 160 H (70-110) mg/dL 06/21/24 Range/Units 07:16 POC Glucose (mg/dL) 116 H (70-110) mg/dL
[2024-06-21 12:08] LABS: Glucose,Whole Blood 146 mg/dL (70-110)
[2024-06-21 17:30] LABS: Glucose,Whole Blood 152 mg/dL (70-110)
[2024-06-21 20:30] LABS: Glucose,Whole Blood 146 mg/dL (70-110)
--- NOTE | 2024-06-21 22:43 | P.PN ---
Subjective Progress Note Date: 06/21/24 This is a pleasant 68 years old male with past medical history of diabetes mellitus, patient states that he takes 1 injection for diabetes a day and he does not take other medication. He lives in a farm that belongs to his parents by himself after his left him about 8 to 10 years ago, his kids are living somewhere else. He says because of his leg weakness he decided to come to the emergency room. Patient states that his leg weakness was getting slightly worse and worse over several months and years, and told to the degree that he could not move around so he called 911 and came to emergency room. However his legs look stronger now and he told me he could manage himself to walk slowly to the restroom. Also on exam his legs does not look weak and he looks symmetrical he denies tingling or numbness in both upper and lower extremities, no headache or dizziness, no blurred vision or slurred speech. No chest pain or dyspnea no abdominal pain but he complains from right upper quadrant deep discomfort for 2 months. No diarrhea or vomiting. No urinary complaints On exam for his lower extremity weakness he experienced some tenderness especially in the right calf He denies smoking alcohol or illicit drugs Vitals are stable held febrile Labs showing unremarkable CBC, BMP, LFTs, troponin. Glucose was elevated at 546 on admission, improved to 200 Ultrasound of the leg is negative for DVT EKG showing sinus rhythm at 69 with PVCs and anterior fascicular block and LVH. He does not follow-up with PCP for more than 6 months, he cannot remember where he got his prescription for his diabetes medication 06/12 Patient looks comfortable He still complains from mild right upper quadrant pain, gallbladder ultrasound was negative for acute process Complains of bilateral calf pain mainly on the right side, ultrasound of the leg was negative for DVT. His pain is mild. Patient states he is able to ambulate, PT/OT is requested His glucose still uncontrolled, will increase his metformin to 850 3 times daily and added Farxiga. Add losartan 25 mg and Norvasc for uncontrolled hypertension cripple worker on the case to help with placement 06/13/2024 Patient is seen in follow-up today denies any acute overnight issues although continues to have some mildly elevated and uncontrolled blood sugars. PT/OT therapy evaluated and would not qualify for ECF as he is mostly independent recommending home with home care. Social work is following working on possible placement as patient does not have a primary care provider and is extremely noncompliant with medications and unsure of where he has been staying. He reports he stays at a farm that belongs to his parents. Patient is a poor hist orian and apparently other information has been provided to case management/social work by family. Will discuss further with social work regarding the case and may likely need a guardian as patient is not making sound decisions for himself regarding his health and wellbeing. Will consult psych for evaluation as well. 06/14/2024 Patient is seen in follow-up this morning currently walking with PT/OT therapy doing well. Patient does have significant history of dementia and is currently homeless and has been living in shelters and hitchhiking. Apparently per social work one of his family members was contacted and apparently may have charges in [place] for sexual offense. Social work following and psychiatry as patient is unable to make sound decisions for himself will be needing a guardian and hearing has been scheduled for next week 06/21/2024. Patient is currently afebrile with no reports of chest pain or shortness of breath. Blood sugars are better controlled on current regimen and will continue to monitor closely. Repeat labs ordered for a.m. and recommend replace electrolytes per protocol. 06/15/2024 Patient is seen in follow-up today with no acute overnight issues noted. Patient has been compliant with care and blood sugars better controlled on current regimen and will continue to monitor closely. Labs reviewed and white count mildly elevated at 10 although afebrile with no reports of chest pain, shortness of breath, or burning with urination. Will follow-up on repeat labs and continue current regimen. Social work is following and guardianship hearing plan for 06/21/2024. Apparently patient must remain hospitalized until guardianship has been obtained. 06/16/2024 Patient is seen in follow-up today and blood sugars are controlled. Currently awaiting court hearing for guardianship which is on June 21, 2024. Social work following and once guardianship is obtained we will work on placement. Patient for nursing staff has been inappropriate intermittently. Patient denies chest pain or shortness of breath. Patient reports he is eating and drinking with no reported nausea or vomiting. 06/19/2024 Patient is seen in follow up today with no acute overnight issues noted. Blood sugars have been well-controlled on current regimen and will continue. Encouraged increase activity as tolerated with frequent walks around the halls. Currently awaiting guardianship court hearing on 06/21/2024. Social work is following and will discuss further regarding discharge planning once patient has guardianship. 06/20/2024 Patient is seen in follow-up this morning continues to be pleasant with no issues noted per nursing staff. Patient's blood sugars are well-controlled and will continue with current regimen. Patient will continue on sliding scale and as needed long-acting and will adjust accordingly. Social work is following and emergent guardianship hearing is tomorrow for 12/02/2024 and will await guardianship and then proceed with possible placement. Patient also to have Medicaid application initiated. Patient is afebrile with no reports of chest pain or shortness of breath. Patient has been up and walking to the bathroom with no difficulties. Will continue to monitor closely. 06/21/2024 Patient has a follow-up guardianship hearing today at 230 with social work attending. Medicaid application being applied for and patient does have an accepting ECF/AFC once guardianship is obtained. Patient is afebrile with no reports of chest pain or shortness of breath. Patient has been tolerating diet and compliant with medications and blood sugars have been well-controlled. Will continue current regimen. Review of systems: Constitutional: No reports of fatigue, fever, or chills Cardiovascular: No reports of chest pain or palpitations Respiratory: No reports of shortness of breath or cough GI: No reports of nausea, vomiting, or diarrhea : No reports of dysuria or retention Neurovascular: No reports of weakness or numbness All medications have been reviewed Physical exam: Gen: This is a 68-year-old male who is awake, alert and oriented x 2, well- developed, appears older than stated age, elderly, unkempt HEENT: Head is atraumatic, normocephalic. Pupils equal, round. Sclerae is anicteric. NECK: Supple. No JVD. No lymphadenopathy. No thyromegaly. LUNGS: Diminished breath sounds bilaterally otherwise clear to auscultation. No wheezes or rhonchi. No intercostal retractions. HEART: S1, S2 are muffled ABDOMEN: Soft. Obese. Bowel sounds are present. No masses. No tenderness. EXTREMITIES: No pedal edema. No calf tenderness. NEUROLOGICAL: Patient is awake, alert and oriented x2. Cranial nerves 2 through 12 are grossly intact. Assessment: Generalized weakness and inability to walk exacerbated by hyperglycemia and dehydration, improved, patient is walking independently Diabetes mellitus, type II, uncontrolled with hyperglycemia, hemoglobin A1c is 9.9 Hypertension, uncontrolled on admission and noncompliance with medication, improved Right upper quadrant pain, improved Right calf tenderness most likely musculoskeletal, mild, ultrasound is negative for DVT Noncompliance with medications and follow-up GI prophylaxis DVT prophylaxis Full code Plan: Patient's blood sugars are somewhat better controlled and will continue current regimen. Recommend to continue with Accu-Cheks before meals and at bedtime and will adjust insulins if needed. Patient evaluated by psych and does not meet inpatient criteria for psychiatric unit and is also deemed unable to take care of himself and make decisions reg arding his medical care. Social work following and requested a court hearing for guardianship as patient is homeless and unable to care for himself. Once a guardianship is obtained, will look into ECF or AFC home that can accommodate. Per social work there is an AFC that can accommodate and except possibly on 06/22/2024. Guardianship court hearing is today for 12/02/2024 Encouraged increase activity as tolerated. Court hearing is scheduled for today 06/21/2024 at 2:30 PM for guardianship and so cial work is following, Medicaid application being started, and multiple referrals were placed to AFC's and/or ECF psych can accommodate. Possible excepting AFC on 06/22/2024 awaiting guardianship hearing and appointment. Due to multiple complex medical issues, overall prognosis is guarded The impression and plan of care has been dictated by Adelia Sweet, Nurse Practitioner as directed. Dr. Rei MD I have performed a history and examination and MDM of this patient, discussed the same with the dictator, and agree with the dictator's assessment and plan as written ,documented as a scribe. Based on total visit time, I have performed more than 50% of the visit. Objective - Vital Signs Vital signs: Vital Signs Temp 97.4 F L 06/21/24 07:45 Pulse 68 06/21/24 07:45 Resp 16 06/21/24 07:45 BP 149/73 06/21/24 07:45 Pulse Ox 96 06/21/24 07:45 FiO2 Intake & Output 06/20/24 06/21/24 06/21/24 18:59 06:59 18:59 Other: Voiding Method Toilet Toilet # Voids 4 1 - Labs CBC & Chem 7: 06/18/24 05:12 06/18/24 05:12 Labs: Abnormal Lab Results - Last 24 Hours (Table) 06/20/24 06/20/24 06/20/24 Range/Units 12:02 17:26 20:29 POC Glucose (mg/dL) 149 H 225 H 160 H (70-110) mg/dL 06/21/24 Range/Units 07:16 POC Glucose (mg/dL) 116 H (70-110) mg/dL
[2024-06-22 07:06] LABS: Glucose,Whole Blood 147 mg/dL (70-110)
[2024-06-22 07:23] VITALS: RESP 20
--- NOTE | 2024-06-22 10:41 | P.DS ---
Providers Date of admission: 06/16/24 09:02 Expected date of discharge: 06/22/24 Attending physician: Jeff Yoder MD Consults: 06/13/24 14:50 Consult Physician Urgent Consulting Provider: Shilpa Byers Consult Reason/Comments: dementia, previous sex offender, mult issues, ams Do you want consulting provider notified?: Yes Primary care physician: Stated None Hospital Course: Final diagnosis Generalized weakness and inability to walk exacerbated by hyperglycemia and dehydration, improved, patient is walking independently Diabetes mellitus, type II, uncontrolled with hyperglycemia, hemoglobin A1c is 9.9 Hypertension, uncontrolled on admission and noncompliance with medication, improved Right upper quadrant pain, improved Right calf tenderness most likely musculoskeletal, mild, ultrasound is negative for DVT Noncompliance with medications and follow-up GI prophylaxis DVT prophylaxis Full code Discharge disposition Patient is being discharged in a stable condition with guarded prognosis to [facility]. Patient will follow-up with a primary care provider to establish with in the outpatient setting upon discharge. Patient is to continue with diabetic diet and close monitoring with Accu-Cheks AC and at bedtime as scheduled. Total time taken is greater than 35 minutes. Hospital course This is a 68-year-old male who was recently admitted with hyperglycemia history of dementia and also significant dehydration and weakness. Patient had inability to walk although once blood sugars were corrected patient evaluated by physical therapy doing well and is independent. Apparently patient has been hitchhiking and has been in [place], [place], [place], no residence and has no primary care provider. Family is distant as patient has had previous issues with sexual offenses. Patient does have dementia and poorly controlled diabetes and had been noncompliant and not taking any medications. Blood sugars are better controlled on current regimen and will continue and recommend establishing with a primary care provider and/or visiting physicians for continued continuity of care. Patient did receive emergent guardianship from a public guardian and social work following has found [facility] that will accept the patient. Patient will be discharged today. Currently no reports of chest pain, shortness of breath, or palpitations. Patient is afebrile. No reports of nausea or vomiting and patient is tolerating diet. Patient will be going to [facility] all mail facility today. Physical exam: Gen: This is a 68-year-old male who is awake, alert and oriented x 2-3, baseline, well-developed, elderly appearing HEENT: Head is atraumatic, normocephalic. Pupils equal, round. Sclerae is anicteric. NECK: Supple. No JVD. No lymphadenopathy. No thyromegaly. LUNGS: Clear to auscultation. No wheezes or rhonchi. No intercostal retractions. HEART: Regular rate and rhythm. No murmur. ABDOMEN: Soft. Bowel sounds are present. No masses. No tenderness. EXTREMITIES: No pedal edema. No calf tenderness. NEUROLOGICAL: Patient is awake, alert and oriented x3. Cranial nerves 2 through 12 are grossly intact. Please refer to medication reconciliation sheet for a list of medications. The impression and plan of care has been dictated by Adelia Sweet, Nurse Practitioner as directed. Dr. Sohan MD I have performed a history and examination and MDM of this patient, discussed the same with the dictator, and agree with the dictator's assessment and plan as written ,documented as a scribe. Based on total visit time, I have performed more than 50% of the visit. Patient Condition at Discharge: Stable Plan - Discharge Summary Discharge Rx Participant: No New Discharge Prescriptions: New Losartan [Cozaar] 25 mg PO DAILY tab amLODIPine [Norvasc] 5 mg PO BID tab Acetaminophen Tab [Tylenol] 650 mg PO Q6HR PRN tab PRN Reason: Mild Pain Or Fever > 100.5 Donepezil [Aricept] 5 mg PO HS tab Dapagliflozin Propanediol [Farxiga] 10 mg PO DAILY tab metFORMIN HCL [Glucophage] 850 mg PO TID tab INSULIN LISPRO (HumaLOG) [HumaLOG] 0 unit SQ AC-TID each Insulin Glargine (Lantus) [Lantus Vial] 10 unit SQ BID@0700,2100 each Ibuprofen [Motrin] 400 mg PO Q6HR PRN tab PRN Reason: Pain Discharge Medication List Acetaminophen Tab [Tylenol] 650 mg PO Q6HR PRN tab 06/22/24 [Rx] Dapagliflozin Propanediol [Farxiga] 10 mg PO DAILY tab 06/22/24 [Rx] Donepezil [Aricept] 5 mg PO HS tab 06/22/24 [Rx] INSULIN LISPRO (HumaLOG) [HumaLOG] 0 unit SQ AC-TID each 06/22/24 [Rx] Ibuprofen [Motrin] 400 mg PO Q6HR PRN tab 06/22/24 [Rx] Insulin Glargine (Lantus) [Lantus Vial] 10 unit SQ BID@0700,2100 each 06/22/24 [Rx] Losartan [Cozaar] 25 mg PO DAILY tab 06/22/24 [Rx] amLODIPine [Norvasc] 5 mg PO BID tab 06/22/24 [Rx] metFORMIN HCL [Glucophage] 850 mg PO TID tab 06/22/24 [Rx] Follow up Appointment(s)/Referral(s): None,Stated [Primary Care Provider] - 1-2 days Activity/Diet/Wound Care/Special Instructions: Patient is going to [facility] Activity as tolerated Recommend establishing with a primary care provider in the area and/or visiting physician as patient has no primary care provider Continue taking medications as prescribed Recommend consistent carb diet Recommend monitoring Accu-Cheks AC and at bedtime and may use sliding scale NovoLog sliding scale 0-150 equals 0 units 151-200 equals 2 units 201-250 equals 4 units 251-300 equals 6 units 301-350 equals 8 units 351-400 equals 10 units Please notify provider if blood sugar is 400 or above Patient also continued on long-acting Discharge Disposition: TRANSFER TO SNF/ECF
[2024-06-22 12:16] LABS: Glucose,Whole Blood 232 mg/dL (70-110)
[2024-06-22 12:31] VITALS: BP 138/74; PULSE 74; TEMP 97.6
== END 2024-06-22 15:13 | DRG 638 ==
LOC: EC 22:58 → 5NMEDONC 06-11 02:44 → OBSVTOIN 06-16 09:02
PROVIDERS: ADMIT Internal Medicine; ATTEND Internal Medicine
DX: E11.65 Type 2 diabetes mellitus with hyperglycemia (principal); Z59.00 Homelessness unspecified; G93.89 Other specified disorders of brain; F03.90 Unspecified dementia, unspecified severity, without behavioral disturbance, psychotic disturbance, mood disturbance, and anxiety; I10 Essential (primary) hypertension; Z79.4 Long term (current) use of insulin; R10.11 Right upper quadrant pain; T38.3X6A Underdosing of insulin and oral hypoglycemic [antidiabetic] drugs, initial encounter; I49.3 Ventricular premature depolarization; M79.604 Pain in right leg; M79.605 Pain in left leg; E86.0 Dehydration; G89.29 Other chronic pain; Z55.5 Less than a high school diploma; Z87.891 Personal history of nicotine dependence; Z91.128 Patient's intentional underdosing of medication regimen for other reason; Z91.148 Patient's other noncompliance with medication regimen for other reason; Z60.2 Problems related to living alone; Z79.84 Long term (current) use of oral hypoglycemic drugs; Z79.899 Other long term (current) drug therapy; Z56.0 Unemployment, unspecified
CPT/HCPCS: 36415; 76705; 80048; 80053; 83036; 83735; 85025; 87635; 93005; 93970; 96360; 99285